=== PATIENT | female | born 1945 | race Caucasian/White ===

== ENCOUNTER 2017-02-12 11:27 | Inpatient (IN) | payer MEDICAID, MEDICARE ==
[2017-02-12] VITALS (7 sets, daily range): BP systolic 138–187; BP diastolic 72–87; PULSE 79–108; RESP 22–33; O2SAT 93–96
[~2017-02-12] VITALS: Ht 165.1 cm; Wt 57.1 kg
--- NOTE | 2017-02-12 12:33 | DRSVH ---
PROCEDURE: X-RAY CHEST ONE VIEW, PORTABLE ([id number]) INDICATIONS: Dyspnea TECHNIQUE: One view of the chest was acquired. COMPARISON: None. FINDINGS: Surgical changes and devices: None. Lungs and pleura: Moderate bibasilar consolidation is present that obscures the diaphragms. Intersti tial prominence within the perihilar regions is noted. Mediastinum: Mediastinal contours appear normal. Heart size is normal. There appears to be aortic atherosclerosis. Bones and chest wall: No suspicious bony lesions. Overlying soft tissues appear unremarkable. IMPRESSION: Bibasilar opacities obscure the diaphragms, most likely representing small to moderate si zed bilateral pleural effusions with associated atelectasis. However, superimposed pneumonia or pulm onary edema cannot be excluded. Dictated by: King Corey M.D. on 02/12/2017 at 11:28 Approved by: King Corey M.D. on 02/12/2017 at 11:31
[2017-02-12 12:37] LABS: BASOPHILS % (AUTO) 0.4 % (0-3); MONOCYTES % (AUTO) 7.7 % (4-12); Mean Corpuscular Hemoglobin 29.7 pg (27.0-35.0); Mean Corpuscular Volume 90.6 fL (81-100); NEUTROPHILS % (AUTO) 84.1 % (40-74); Platelet Count 298 bil/L (150-400)
--- NOTE | 2017-02-12 12:37 | ED.REPORT ---
HPI-General Illness Date of Service February 12, 2017 ED Provider: Manisha Martinez MD The patient is a 71 year old female w/ a hx of ME who presents to the ED due 3 weeks of worsening SOB. Associated symptoms include exertional dyspnea and weakness. Pt has to sit up in a chair in order to sleep. She is having trouble speaking due to SOB and can only manage 3-5 word sentences. She states that her symptoms are different from her normal, seasonal hay-fever. Pt is not on any medication. She denies chest pain, abdominal pain, and fever. The pt currently does not have any doctor and lives by herself. She has been doing quite well until the past couple days. Nursing Notes Stated Complaint: SHORTNESS OF BREATH Chief Complaint: Respiratory Distress Nursing Notes Reviewed: Yes Allergies: Coded Allergies: No Known Allergies (Unverified , 02/12/17) No Active Prescriptions or Reported Meds General Time Seen by MD: 11:46 Chief Complaint Other (shortness of breath) Hx Obtained From: Patient Arrived By: Walk-in Sudden in Onset?: Yes Onset Occurred: More than a week ago... (3 weeks) Symptom Duration: Since onset (3 weeks) Severity: Current: No pain currently Recent Healthcare: No recent doctor visit, No recent hospitalization Similar Sx Previous: No Past Medical History Past Medical History seasonal allergies Past Surgical History left shoulder dislocation Smoking History Unknown if Ever Smoker Social History Other Social History: Local resident Ambulatory Status Independent Review of Systems Full Review of Systems Constitutional: Denies: Fever Respiratory: Reports: Dyspnea on exertion, Shortness of breath Cardiovascular: Denies: Chest pain GI: Denies: Abdominal pain Neurologic: Reports: Weakness Complete sys rev & neg: except as marked. Physical Exam Vital Signs Vital Signs Date Time Temp Pulse Resp B/P Pulse Ox O2 Delivery O2 Flow Rate FiO2 02/12/17 13:20 92 28 176/72 95 Nasal Cannula 4 02/12/17 11:45 36.5 108 33 187/82 93 Nasal Cannula 4 Initial VS: Reviewed Head / Eyes: Atraumatic, Normocephalic, PERRL ENT: Mucous membranes moist Abdomen / GI: Soft, Non-tender, No guarding, No rebound, No distention Back: No CVA tenderness Skin: Warm, Dry Neurologic: Alert, Oriented Neck Vascular: Positive: JVD severe Rales / Rhonchi: Positive: Rales diffuse (to apices) tachypneic speaking in 3-5 word sentences Heart Rate / Rhythm: Positive: Irreg irregular rhythm Heart Sounds / Murmur: Positive: Systolic murmur present.. (III/) Lower Ext Edema: Positive: Bilateral 3+ (without chronic venous stasis, with bilateral erythema ) Upper Extremities Upper Extremity / MS: Full range of motion, No swelling fingertips are cool Interpretation & Diagnostics Lab Results Interpretation Result Diagram: 02/12/17 1225 02/12/17 1225 Test 02/12/17 12:25 White Blood Count 7.3th/mm3 (3.8-10.1) Red Blood Count 4.68mil/mm3 (3.90-5.20) Hemoglobin 13.9g/dL (12.0-15.6) Hematocrit 42.4% (35.0-46.0) Mean Corpuscular Volume 90.6fL (81-100) Mean Corpuscular Hemoglobin 29.7pg (27.0-35.0) Mean Corpuscular Hemoglobin Concent 32.8% (32.0-37.0) Red Cell Distribution Width 15.4% (12.3-15.4) Platelet Count 298bil/L (150-400) Neutrophils (%) (Auto) 84.1% (40-74) Lymphocytes (%) (Auto) 6.5% (14-46) Monocytes (%) (Auto) 7.7% (4-12) Eosinophils (%) (Auto) 1.0% (0-5) Basophils (%) (Auto) 0.4% (0-3) Sodium Level 141mEq/L (134-144) Potassium Level 4.2mEq/L (3.5-5.2) Chloride Level 103mEq/L (97-108) Carbon Dioxide Level 22mmol/L (18-29) Blood Urea Nitrogen 22mg/dL (8-27) Creatinine 0.92mg/dL (0.57-1.00) Estimat Glomerular Filtration Rate 86mL/min (>59) Glucose Level 115mg/dL (60-99) Calcium Level 8.8mg/dL (8.5-10.1) Magnesium Level 2.1mg/dL (1.6-2.6) Total Bilirubin 0.5mg/dL (0.0-1.2) Aspartate Amino Transf (AST/SGOT) 39U/L (0-50) Alanine Aminotransferase (ALT/SGPT) 37U/L (0-32) Alkaline Phosphatase 99U/L (25-165) Troponin T 0.051ug/L (0.0-0.011) Total Protein 5.4g/dL (6.4-8.4) Albumin 3.1g/dL (3.4-5.0) Hold Ferrell Top Tube Received (Received) ECG Interpretation ECG Interpretation: LVH Pt does not want intervention STEMI protocol not initiated Time: 12:12 Interpreted by: ED physician Rhythm / Conduction: Tachycardia (RATE 104) X-Ray Chest Interpretation Chest Xray Interpretation: IMPRESSION: Bibasilar opacities obscure the diaphragms, most likely representing small to moderate sized bilateral pleural effusions with associated atelectasis. However, superimposed pneumonia or pulmonary edema cannot be excluded. Dictated by: King Corey M.D. on 02/12/2017 at 11:28 Approved by: King Corey M.D. on 02/12/2017 at 11:31 View: Portable Interpretation / Wet Read by: Interpret - Radiologist Re-Eval/Medical Decision Med Decision/Clinical Course 71-year-old woman with no primary care physician no need to see a physician in no medical diagnoses and no medications presents with 3 weeks of exertional dyspnea and 3 days of getting significantly worse now with dyspnea at rest and having difficulty speaking in more than one to 2 word sentences. Initial workup reveals abnormal EKG with tachycardia frequent PVCs left ventricular hypertrophy and a question of ST elevation anteriorly versus repolarization abnormality. Labs reveal an elevated troponin. Chest x-ray reveals pulmonary edema and clinical exam is also suggestive that her failure with significant edema. Initial concern was for STEMI. Cardiology was called for recommendations and review. The patient is very clear she wants to be DO NOT RESUSCITATE and would not want any type of interventional procedures. Dr. Flores did come to the emergency department and did not feel that the EKG was intact a STEMI rather showed repolarization abnormalities. He personally did a bedside ultrasound suggesting an ejection fraction of 20% consistent with overwhelming heart failure and the severe respiratory distress she is currently exhibiting. She is feeling a bit better after IV nitroglycerin currently on heparin. Initially had started to do metoprolol 3 IV push is given her tachycardia and hypertension however once the bedside ultrasound suggested such a low ejection fraction held off on any additional metoprolol and added by mouth lisinopril. She will be admitted to the PCU hospitalist is involved stable at time of transfer to the floor Time of Eval: 12:22 Re-Evaluation/Progress Note: Pt rechecked. She is significantly tachypneic. Pt is definitely DNR and doesn't want any interventions. Discussed concerns that she was having a heart attack. Consultation #1: Referral / Consult Name: Todd Flores MD Consulted With: Cardiology Call Returned at: 13:27 Dog Races Manager: Will see patient Note: Case discussed with cardiology. Dr. Flores will come and see pt. Consultation #2: Referral / Consult Name: Todd Flores MD Consulted With: Cardiology Call Returned at: 13:41 Note: Dr. Flores visits pt in the ED and performs a bedside US. He believes it is hypertensive cardiomyopathy with a current ejection fracture at 20%. He recommends increasing nitro drip and ordered oral Lisiniprol. Will hold on IV metropolol and agrees with admission. Consultation #3: Referral / Consult Name: Momo Garcia DO Consulted With: Hospitalist Call Returned at: 15:17 Dog Races Manager: Agrees with eval, Agrees with plan Note: Case discussed. Counseled Regarding: Diagnosis, Lab results, Need for admission Discharge & Departure Primary Impression: Acute heart failure Heart failure type: unspecified heart failure type Qualified Code: I50.9 - Heart failure, unspecified Additional Impressions: Hypertensive cardiomyopathy Heart failure presence: with heart failure Qualified Code: I11.0 - Hypertensive heart disease with heart failure NSTEMI (non-ST elevated myocardial infarction) Disposition: ADMITTED TO HOSPITAL Discharge Condition All VS Reviewed: Yes Condition: Stable Referrals: NOPCP (PCP) Ad Loyola MD (Family) [facility] Scrjennifer Attestation Portion of this note were transcribed by Ivon Arthur. I, Dr. Manisha Martinez, personally performed the history, physical exam, and medical decision-making: I reviewed and confirmed the accuracy for the information in the transcribed note. Signed by: vinny Bailon, 02/12/17 1500 copies to: [facility] Manisha Martinez MD February 12, 2017 12:36 Ivon Arthur February 12, 2017 12:46
[2017-02-12] MEDS ORDERED: Heparin 25K Unit/500mL 0.45 NS 25,000 UNIT in IV Premix 1 EACH IV ONE (12:40)
[2017-02-12] MEDS ORDERED: Nitroglycerin 50 mg/250 mL D5W 50,000 MCG in IV Premix 1 EACH IV ONE (12:40)
[2017-02-12] MEDS ORDERED: Heparin 5,000 Unit/mL Inj IVPUSH ONE (12:40)
[2017-02-12 13:10] LABS: Magnesium 2.1 mg/dL (1.6-2.6)
[2017-02-12 13:13] LABS: TROPONIN T 0.051 ug/L (0.0-0.011)
[2017-02-12] MEDS: Heparin 25,000 UNIT in 0.9% Sodium Chloride 475 ML IV SCH (13:33)
--- NOTE | 2017-02-12 13:59 | PCM.CHPCAR ---
Consult Subjective Date of service February 12, 2017 Date of admit Provider Requesting Consult Requesting Provider: Manisha Martinez MD Primary Care Physician Primary Care Physician: Marysol Chief Complaint Progressive shortness of breath History of Present Illness This is a delightful 71-year-old female with history of shortness of breath over the past 2-3 weeks. She has noted progressive symptoms that are consistent with PND and/or orthopnea. She is up to the point where she has to sit in a chair throughout the night. She denies any real significant chest discomfort. She has complained of mild chest discomfort on and off over the past 2-3 weeks. She fell and presents to the ER with these complaints and an EKG was performed which was interpreted as an acute MN concerns for anterior ST elevation myocardial infarction. However based on my personal review it appears to be more secondary to LVH pattern. She has sinus tachycardia. Her chest x-ray shows possibly pulmonary edema with atelectasis. The patient currently is more comfortable after she was placed on Nitropaste. She has been started on intravenous heparin. Her troponins have come back positive. The rest of her blood work is essentially within normal limits. Review of Systems General: Reports: Change in exercise capacity Energy (decreased) Fatigue (decreased) Normal Appitite Ears, Nose, Mouth & Throat: Denies: Any hearing loss Epistaxis or hoarseness Respiratory: Reports: Orthopnea or PND Significant dyspnea Cardiovascular: Reports: Atypical chest discomfort Chest Discomfort Denies: Atrial Fibrillation Skipped beats Gastrointestinal: Denies: Ulcers or GI blood loss Genitourinary: Denies: Hematuria Urinary symptoms Musculoskeletal: Denies: Significant joint or back problems Significant myalgias Neurological: Reports: Any history of stroke/TIA symptoms Psychiatric: Denies: Anxiety Depression Endocrine: Denies: Intolerance to heat Integumentary: Denies: Any change in hair or nails Any rash or skin lesions Hematologic/Immunologic: Denies: Recent history of anemia Unusual bruising or bleeding PMH Past Medical History Seasonal allergies No Active Prescriptions or Reported Meds Current Inpatient Medications Current Medications Nitroglycerin 0.4 mg Q5MIN PRN SL Last administered on 02/12/17t 13:03; Admin Dose 0.4 MG; Start 02/12/17 at 12:40 Metoprolol Tartrate 5 mg Q5MIN PRN IVPUSH; Start 02/12/17 at 13:35 Allergies: Coded Allergies: No Known Allergies (Unverified , 02/12/17) Family History Family History Noncontributory Social History Hx Alcohol Use: Yes ("occasionally")Hx Substance Use: No Smoking Status: Unknown if Ever Smoker Exam Vital Signs Vital Sign - Last Date Time Temp Pulse Resp B/P Pulse Ox O2 Delivery O2 Flow Rate FiO2 02/12/17 13:20 92 28 176/72 95 Nasal Cannula 4 02/12/17 11:45 36.5 General: Pleasant Cooperative Skin: Warm & dry to touch Head: Normocephalic Eye: EOMS intact Neck: JVP elevated Ears, Nose & Throat: Ears no gross abnormalities Nose no gross abnormalities Chest: Crackles Cardiac: Normal non-displaced apical impulse Regular rhythm Pulses: Pulses full/equal all extremities Abdomen: Soft, non-distended, non-tender Without masses or organomegally Extremities: Warm w/o deformities,erythema noted Neurological: Alert & oriented No gross motor or sensory deficits Psychological: Affect & interaction appropriate Lab and Diagnostics Labs CBC Test 02/12/17 12:25 White Blood Count 7.3th/mm3 (3.8-10.1) Red Blood Count 4.68mil/mm3 (3.90-5.20) Hemoglobin 13.9g/dL (12.0-15.6) Hematocrit 42.4% (35.0-46.0) Mean Corpuscular Volume 90.6fL (81-100) Mean Corpuscular Hemoglobin 29.7pg (27.0-35.0) Mean Corpuscular Hemoglobin Concent 32.8% (32.0-37.0) Red Cell Distribution Width 15.4% (12.3-15.4) Platelet Count 298bil/L (150-400) Neutrophils (%) (Auto) 84.1% (40-74) Lymphocytes (%) (Auto) 6.5% (14-46) Monocytes (%) (Auto) 7.7% (4-12) Eosinophils (%) (Auto) 1.0% (0-5) Basophils (%) (Auto) 0.4% (0-3) CMP Test 02/12/17 12:25 Sodium Level 141mEq/L Potassium Level 4.2mEq/L Chloride Level 103mEq/L Carbon Dioxide Level 22mmol/L Blood Urea Nitrogen 22mg/dL Creatinine 0.92mg/dL Estimat Glomerular Filtration Rate 86mL/min Glucose Level 115mg/dL Calcium Level 8.8mg/dL Magnesium Level 2.1mg/dL Total Bilirubin 0.5mg/dL Aspartate Amino Transf (AST/SGOT) 39U/L Alanine Aminotransferase (ALT/SGPT) 37U/L Alkaline Phosphatase 99U/L Troponin T 0.051ug/L Total Protein 5.4g/dL Albumin 3.1g/dL Hold Ferrell Top Tube Received Result Diagram: 02/12/17 1225 02/12/17 1225 X-Rays, CTs and MRIs Date of Service: 02/12/17 1151 PROCEDURE: X-RAY CHEST ONE VIEW, PORTABLE ([id number]) INDICATIONS: Dyspnea TECHNIQUE: One view of the chest was acquired. COMPARISON: None. FINDINGS: Surgical changes and devices: None. Lungs and pleura: Moderate bibasilar consolidation is present that obscures the diaphragms. Interstitial prominence within the perihilar regions is noted. Mediastinum: Mediastinal contours appear normal. Heart size is normal. There appears to be aortic atherosclerosis. Bones and chest wall: No suspicious bony lesions. Overlying soft tissues appear unremarkable. IMPRESSION: Bibasilar opacities obscure the diaphragms, most likely representing small to moderate sized bilateral pleural effusions with associated atelectasis. However, superimposed pneumonia or pulmonary edema cannot be excluded. Dictated by: King Corey M.D. on 02/12/2017 at 11:28 Approved by: King Corey M.D. on 02/12/2017 at 11:31 Assessment & Plan Problems: (1) Acute systolic heart failure Plan: Her symptoms are consistent with acute onset of systolic heart failure with congestion. The patient appears to be experiencing a non-ST elevation myocardial infarction. Her EKG is not impressive for anterior STEMI. She has more upsloping ST segments in the setting of LVH which is consistent with LVH pattern. She has no reciprocal changes either. She denies any real significant chest pain at this moment. We will proceed with a stat echocardiogram to assess her LV ejection fraction and LV wall motion and for any other structural heart disease. The patient will be started on intravenous heparin, Nitropaste, aspirin, statins. Beta blockers will be decided after her echocardiogram has been completed. I would also like to start on QUINN inhibitor since her blood pressure is quite elevated at this moment. We discussed about a heart catheterization in detail. Initially she told the ER physician that she did not want to proceed with any invasive therapy. However after further discussion she has agreed that she would like to have done if her symptoms will improve. Status: Acute ICD Code: I50.21 (2) Non-ST elevation myocardial infarction (NSTEMI) Plan: Patient will be started on intravenous heparin, aspirin, statins, and Quinn inhibitors given the setting of acute hypertension. We will hold off beta blockers for now because she might have acute CHF which is a relative contraindication for beta skyler therapy. She is also Nitropaste which is helping with her breathing as well which is most likely a result of her decreased preload. Status: Acute ICD Code: I21.4 Resuscitation Status: CPR: Attempt Resuscitation Time spent 60 minutes of critical care Todd Flores MD February 12, 2017 13:59
[2017-02-12] MEDS: MeTOProlol 1 mg/mL 5 mL Inj IVPUSH PRN (14:16)
[2017-02-12] MEDS ORDERED: Alum-Mag Hydrox-Simeth 30 mL Suspension PO PRN (15:20)
[2017-02-12] MEDS ORDERED: Senna-Docusate 8.6-50 mg Tablet PO PRN (15:20)
[2017-02-12] MEDS ORDERED: Ondansetron 2 mg/mL 2 mL Inj IVPUSH PRN (15:20)
[2017-02-12] MEDS ORDERED: Polyethylene Glycol (PEG) 17 Gm Powder PO PRN (15:20)
--- NOTE | 2017-02-12 15:23 | DRSVH ---
[facility] [address] [place] [address] Echocardiogram Report Name: NITHYA OTOOLE Study Date: 02/12/2017 Height: 65 in Hospital Exam Location: [facility] Weight: 130 lb Gender: Female BSA: 1.6 m2 : 1945 Age: 71 yrs BP: 189/105 mmHg Reason For Study: ACUTE WI / CHF Ordering Physician: Performed By: Kory Figueroa Interpretation Summary The left ventricle is moderate-severely dilated. There is moderate concentric left ventricular hypertrophy. Left ventricular systolic function is moderate to severely reduced. The ejection fraction is estimated to be 30-35%. There is moderate to severe global hypokinesis of the left ventricle. The right ventricle is normal in size and function. The right ventricular systolic pressure is estimated at 63 mmHg assuming a right atrial pressure of 15 mm Hg. The left atrium is severely dilated. The right atrium is mild to moderately dilated. There is moderate mitral regurgitation. There is mild aortic valve sclerosis. There is moderate aortic regurgitation. There is mild to moderate tricuspid regurgitation. The aortic Sinus(es) of Valsalva are moderately dilated. The ascending aorta is moderately enlarged. There is a small pericardial effusion noted. There are no echocardiographic or Doppler indications for cardiac tamponade. There are moderately large-sized bilateral pleural effusions noted. Procedure: A two-dimensional transthoracic echocardiogram with color flow and Doppler was performed. The study quality was technically good. The heart rate ranged between 77-125 bpm during the study. Left Ventricle: The left ventricle is moderate-severely dilated. There is moderate concentric left ventricular hypertrophy. Left ventricular systolic function is moderate to severely reduced. The ejection fraction is estimated to be 30-35%. There is moderate to severe global hypokinesis of the left ventricle. Right Ventricle: The right ventricle is normal in size and function. Atria: The left atrium is severely dilated. The right atrium is mild to moderately dilated. The interatrial septum is intact with no evidence for an atrial septal defect. Mitral Valve: The mitral valve leaflets appear borderline thickened, but open well. There is moderate mitral annular calcification. There is moderate mitral regurgitation. Aortic Valve: The aortic valve is trileaflet. The aortic valve opens well. There is mild aortic valve sclerosis. There is moderate aortic regurgitation. There is mild holodiastolic flow reversal in the descending thoracic aorta. Tricuspid Valve: There is mild to moderate tricuspid regurgitation. The right ventricular systolic pressure is estimated at 63 mmHg assuming a right atrial pressure of 15 mm Hg. Pulmonic Valve: The pulmonic valve is not well seen, but is grossly normal. There is trace pulmonic regurgitation. Great Vessels: The aortic Sinus(es) of Valsalva are moderately dilated. The ascending aorta is moderately enlarged. The pulmonary artery is normal size. The IVC is dilated (diameter is greater than 2.1 cm) and it collapses less than 50% with a sniff. This suggests a high right atrial pressure of 15 mm Hg. Pericardium/ Pleura There is a small pericardial effusion noted. There are no echocardiographic or Doppler indications for cardiac tamponade. There are moderately large-sized bilateral pleural effusions noted. MMode/2D Measurements & Calculations LVIDd: 6.2 cm RA long axis LVOT diam LVIDs: 5.6 cm LA A2 area: 30.7 cm FS: 9.9 % LA A4 area: 30.0 cm RA area AoV Opening EPSS: 1.9 cm LA length (vol): 5.9 cm IVSd: 1.0 cm LA vol: 133.6 ml : 21.0 cm Ao root diam LVPWd: 1.6 cm LA vol index RA vol : 65.5 ml asc Aorta RA Diam: 4.4 cm IVC diam: 2.3 cm : 39.7 mm2 LV balderas. diameter/BSA LV sys. diameter/BSA (cm/m^2): 3.8 (cm/m^2): 3.4 Doppler Measurements & Calculations Ao V2 max: 245.7 cm/sec MV E max albert MV E/A: 1.2 TR max albert Ao max P.1 mmHg : 97.3 cm/sec : 345.8 cm/sec Ao mean P.9 mmHg MV A max albert TR max PG LVOT Max Albert : 83.3 cm/sec : 47.8 mmHg : 149.7 cm/sec PA V2 max NIKOLAY(I,D): 2.2 cm : 71.1 cm/sec sev ratio: 0.62 PA mean PG AI P1/2t: 310.5 msec : 1.1 mmHg AI dec slope : 475.3 cm/s2c MV dec time: 0.11 sec Ao V2 mean LV V1 max PG PA V2 mean : 170.4 cm/sec : 50.2 cm/sec Ao V2 VTI: 43.8 cm LV V1 VTI PA pr(Accel) NIKOLAY(V,D): 2.1 cm2 : 27.3 cm : 29.2 mmHg NIKOLAY indexed to BSA (cm^2/m^2): 1.3 Reading Physician:VITOR
[2017-02-12] MEDS: Furosemide 10 mg/mL 4 mL Inj IVPUSH SCH (16:51)
--- NOTE | 2017-02-12 17:46 | PCM.HPMED ---
Subjective Date of Service February 12, 2017 Primary Provider: Admitting Physician: Momo Garcia DO Primary Care Physician: Marysol Attending Physician: Momo Garcia DO Chief Complaint: Progressive shortness of breath History of Present Illness: Zenobia Marcos is a 71 year old woman who has a history of avoiding health care who presented to the [facility] ED with a complaint of shortness of breath for the last 2-3 weeks. The patient noted paroxysmal nocturnal dyspnea, orthopnea, significant lower extremity edema, bilateral lower extremity erythema, as well as increasing fatigue. The patient has not seen a physician or sought any medical care for the last 7 years. She states she is otherwise healthy. The patient states that she did not want to come to the hospital however her landlord made her. She has had intermittent chest tightness like a band around her chest going to her back for the last several months and noted it this morning. Patient presented to the ED EKG was performed which was interpreted as an acute anterior WA. Dr. Flores contacted by the ED who evaluated the patient and performed a bedside echo. He did not feel that the patient's EKG was reflective of a STEMI. The patient was given Nitropaste and appeared more comfortable after. Per Dr. Flores the patient was started on IV heparin. Currently the patient states that she feels quite a bit better and her shortness of breath has improved. Review of Systems: A comprehensive review of systems was conducted with the patient and found to be negative except as above in the History of Present Illness. Allergies Coded Allergies: No Known Allergies (Unverified , 02/12/17) Home Medications None. PMH Seasonal allergies Surgical History Left shoulder dislocation Family History Patient states that members of her family ended up with hypertension and heart disease but much later in their lives. Social History Hx Alcohol Use: Yes ("occasionally") Hx Substance Use: No Hx Tobacco Use: No Smoking Status: Never Smoker Exam Vital Signs Vital Sign - Last Date Time Temp Pulse Resp B/P Pulse Ox O2 Delivery O2 Flow Rate FiO2 02/12/17 15:25 79 30 159/87 96 Nasal Cannula 4 02/12/17 11:45 36.5 Exam General: No acute distress, thin, frail elderly woman in a hospital bed. HEENT: Normocephalic, atraumatic. External ears without defect. Right cataract present, left pupil reactive to light. Anicteric sclerae, moist conjunctivae, and no lid lag. Oropharynx free of erythema and cobble stoning with moist mucosa. Neck: Supple with full range of motion. No jugular venous distension. No lymphadenopathy or thyromegaly. Cardiovascular: Irregular rhythm, normal rate with grade 2 out of 5 systolic murmur. Pulmonary: Crackles appreciated bilaterally at the bases. Normal respiratory effort with no use of accessory muscles. Abdomen: Bowel tones present. Soft, nontender, mildly distended. No hepatosplenomegaly or masses appreciated. Extremities: Pitting edema up to the thigh bilaterally. No clubbing. Skin: Normal temperature. Bilateral lower extremities with blanching erythema when elevated. Neurological: Cranial nerves grossly intact. Normal muscle strength, tone, and bulk. Reflexes, coordination, and sensory function within normal limits. No known gait impairment. Psychiatric: Normal mood and affect. Alert and oriented to person, place, and time. Lab and Diagnostics Result Diagram: 02/12/17 1225 02/12/17 1225 X-Rays, CTs and MRIs X-RAY CHEST ONE VIEW, PORTABLE IMPRESSION: Bibasilar opacities obscure the diaphragms, most likely representing small to moderate sized bilateral pleural effusions with associated atelectasis. However, superimposed pneumonia or pulmonary edema cannot be excluded. Dictated by: King Corey M.D. on 02/12/2017 at 11:28 Cardiac Echo Impressions Interpretation Summary The left ventricle is moderate-severely dilated. There is moderate concentric left ventricular hypertrophy. Left ventricular systolic function is moderate to severely reduced. The ejection fraction is estimated to be 30-35%. There is moderate to severe global hypokinesis of the left ventricle. The right ventricle is normal in size and function. The right ventricular systolic pressure is estimated at 63 mmHg assuming a right atrial pressure of 15 mm Hg. The left atrium is severely dilated. The right atrium is mild to moderately dilated. There is moderate mitral regurgitation. There is mild aortic valve sclerosis. There is moderate aortic regurgitation. There is mild to moderate tricuspid regurgitation. The aortic Sinus(es) of Valsalva are moderately dilated. The ascending aorta is moderately enlarged. There is a small pericardial effusion noted. There are no echocardiographic or Doppler indications for cardiac tamponade. There are moderately large-sized bilateral pleural effusions noted. Assessment & Plan Zenobia Marcos is a 71 year old woman who has a history of avoiding health care who presented to the [facility] ED with a complaint of shortness of breath for the last 2-3 weeks. Acute heart failure with reduced EF, present on admission, active -ECHO reveals an EF of 30% -Cardiology consulted, will follow recommendations -IV heparin, Nitroglycerin drip, ASA, statin, ACEi, Lasix per cardiology -Hold off beta-skyler at this time -Questionable if the patient would like to proceed with cardiac cath -Lipid panel in AM -1.5 L fluid restriction, low sodium diet, CHF education NSTEMI, present on admission, active -As above Hyperglycemia -A1C ordered Hypertension -As above, avoid beta skyler in CHF CODE STATUS: DO NOT RESUSCITATE/DO NOT INTUBATE Patient is admitted under inpatient status with expected length of stay greater than 2 midnights due to severity of presenting symptoms, risk of adverse event, and complexity of treatment plan. Pain Evaluation: Adequate Pain Control VTE Prophylaxis: Other (heparin drip) Resuscitation Status: DNR/DNI:Do Not Resuscitate/Intubate Time spent 55 ,minutes Attending Statement I have seen and evaluated patient at bedside with resident physician. I agree with above documentation. Tamanna Mai DO February 12, 2017 15:46 Momo Garcia DO February 13, 2017 08:25
--- NOTE | 2017-02-12 18:48 | NUR ---
Admit/ activity/HR Pt arrived on floor at 1635 on nitro gtt and heparin gtt. Pt A&O x3, transferred from stretcher to bed on slider board due to extreme SOB with exertion. BP hypertensive, HR SR/ST in the 90s-100s. Lasix given, pt able to pivot to [facility] [place] assist. Pt had one run of 6 beats of V-tach, asymptomatic at this time.
[2017-02-13] VITALS (9 sets, daily range): BP systolic 129–159; BP diastolic 66–90; PULSE 83–132; RESP 19–32; O2SAT 93–95
[2017-02-13] MEDS: Heparin Protocol Boluses IVPUSH PRN ×2 (02:08→16:09)
[2017-02-13 03:16] LABS: BASOPHILS % (AUTO) 0.6 % (0-3); EOSINOPHILS % (AUTO) 2.9 % (0-5); MONOCYTES % (AUTO) 10.2 % (4-12); Mean Corpuscular Hemoglobin 29.4 pg (27.0-35.0); Mean Corpuscular Volume 91.4 fL (81-100); NEUTROPHILS % (AUTO) 72.1 % (40-74); Platelet Count 301 bil/L (150-400)
--- NOTE | 2017-02-13 04:06 | NUR ---
CHAVEZ Pt receiving IV lasix. Pt initially refused chavez catheter, but c/o of increased leg pain with all the activity getting in and out of bed to the [facility]. Chavez catheter placed @ 0350 on 02/13/17. VSS, pain 4/10 due to edema to the LE, no pain medication needed.
[2017-02-13] MEDS: Furosemide 10 mg/mL 4 mL Inj IVPUSH SCH ×2 (05:23→18:06)
--- NOTE | 2017-02-13 06:39 | NUR ---
I&O's Pt received IV lasix, on fluid restriction 1500ml per 24 hours. Pt had 298ml in and 1400ml out on evening or night nurse supervisor.
[2017-02-13] MEDS ORDERED: oxyCODONE-Acetamin 5-325 mg Tablet PO PRN (08:40)
--- NOTE | 2017-02-13 11:34 | NUR ---
Social Work: Initial Assessment D: Per EMR review, pt is a 71 year old female admitted for CHF, ASF. Pt is Medicare with no supplement, LTC insurance or VA benefits. Pt has not seen an MD in 7 years and has no PCP. Pt states she has no NOK or identified support persons. Advanced directives information provided to patient- MANAGER ARCHITECTURE stressed importance as pt has no identified family. Readmit score is low, 2/8. MANAGER ARCHITECTURE met with pt at bedside. Sw role explained and contact info provided. See initial assessment. Pt lives at the [facility] where she has been a resident for many years. Pt states she uses no DME, has never had HH or Skilled Rehab. Pt received Meals on Wheels delivery. Pt does not drive but uses public transportation. Per MD at am rounds, pt has excess fluid on LE which makes ambulation difficult. Pt is being diuresed at this time. MANAGER ARCHITECTURE discussed pt's PCP status. Pt is interested in a Residency Clinic Appointment for primary care. Pt is anticipated to be here through the weekend. MANAGER ARCHITECTURE will request [facility] [employer]SEM[employer] make referral on Wednesday as [facility] is closed at this time. A: Pt who is I at baseline. P: Evolving; MANAGER ARCHITECTURE to continue to follow closely with pt's medical care and assist with discharge planning. YASSINE David Addendum: 02/13/17 at 1141 by MANNY VERMA SS Amended: Links added.
--- NOTE | 2017-02-13 12:28 | PCM.PNMED ---
Subjective Date of Service February 13, 2017 Subjective Patient notes overall feeling improved but still having some labored breathing. Her main complaint today is pain of her right leg worse with movement. She has also been urinating very frequently since yesterday with addition of Lasix. Denies any acute chest pains or palpitations, denied any fever or chills. No other pain aside from that of right leg. Exam Vital Signs Vital Sign - Last Date Time Temp Pulse Resp B/P Pulse Ox O2 Delivery O2 Flow Rate FiO2 02/13/17 08:30 Supplement Oxygen 02/13/17 07:51 36.7 95 22 153/78 93 4.00 Intake and Output 02/12/17 02/12/17 02/13/17 Cumulative From/Thru 15:00 23:00 07:00 02/12/17 11:45 - 02/13/17 06:31 Intake Total 469 ml 488 ml 957 ml Output Total 900 ml 2850 ml 3750 ml Balance -431 ml -2362 ml -2793 ml Intake Oral 400 ml 298 ml 698 ml IV Total 69 ml 190 ml 259 ml Output Urine Total 900 ml 2850 ml 3750 ml # Bowel Movements 0 0 General: Alert, Oriented X3, Cooperative, Mild Distress Mouth: Mucous Membr Moist/[place] Chest & Lungs: Coarse breath sounds, Other (persisting crackles noted in bilateral lung bases) Cardiovascular: Other (regular rhythm with a borderline greater on the 100 bpm) Abdomen: Non-tender, Distended, No hepatosplenomegaly Extremities: Other (severe bilateral lower extremity edema, with erythematous changes extending midway up both calfs demarcated line apparently secondary to venous stasis. Right leg is acutely tender but not worsened by palpation no ropiness or masses noted on palpation of calf. Dorsal pedis pulses are intact bilaterally) Neurological: Grossly Neurologically Intact IVs and Medications Medications Reviewed: Medications were reviewed in detail Lab and Diagnostics Result Diagram: 02/13/1724302/13/17 024 X-Rays, CTs and MRIs X-RAY CHEST ONE VIEW, PORTABLE IMPRESSION: Bibasilar opacities obscure the diaphragms, most likely representing small to moderate sized bilateral pleural effusions with associated atelectasis. However, superimposed pneumonia or pulmonary edema cannot be excluded. Dictated by: King Corey M.D. on 02/12/2017 at 11:28 Cardiac Echo Impressions Interpretation Summary The left ventricle is moderate-severely dilated. There is moderate concentric left ventricular hypertrophy. Left ventricular systolic function is moderate to severely reduced. The ejection fraction is estimated to be 30-35%. There is moderate to severe global hypokinesis of the left ventricle. The right ventricle is normal in size and function. The right ventricular systolic pressure is estimated at 63 mmHg assuming a right atrial pressure of 15 mm Hg. The left atrium is severely dilated. The right atrium is mild to moderately dilated. There is moderate mitral regurgitation. There is mild aortic valve sclerosis. There is moderate aortic regurgitation. There is mild to moderate tricuspid regurgitation. The aortic Sinus(es) of Valsalva are moderately dilated. The ascending aorta is moderately enlarged. There is a small pericardial effusion noted. There are no echocardiographic or Doppler indications for cardiac tamponade. There are moderately large-sized bilateral pleural effusions noted. Assessment & Plan Zenobia Marcos is a 71 year old woman who has a history of avoiding health care who presented to the [facility] ED with a complaint of shortness of breath for the last 2-3 weeks. Acute heart failure with reduced EF, present on admission, active -ECHO reveals an EF of 30% -Cardiology consulted, will follow recommendations -IV heparin and Nitroglycerin drip continued, ASA, statin, ACEi, Lasix per cardiology -Considering initiation of beta-skyler prior to discharge - Given stable chest pain nitroglycerin has been made and I would anticipate discontinuation today with agreement of cardiology -1.5 L fluid restriction, low sodium diet, CHF education NSTEMI, present on admission, active -As above, though elevation in troponins may be related to cardiac strain setting of severe CHF exacerbation rather than true acute coronary syndrome - Regardless , pt declines invasive treatment options, requesting medical MGMT only. Right lower leg pain - Given prolonged immobility prior to presentation patient is at high risk of DVT - Right lower extremity Doppler ordered and pending to evaluate further - Pain management currently achieved with when necessary Percocet Hyperlipidemia: - Statin therapy as noted above Hyperglycemia -A1C ordered Hypertension -As above - Improved since admission but not currently on optimal control CODE STATUS: DO NOT RESUSCITATE/DO NOT INTUBATE Patient is admitted under inpatient status with expected length of stay greater than 2 midnights due to severity of presenting symptoms, risk of adverse event, and complexity of treatment plan. Pain Evaluation: Adequate Pain Control GI Prophylaxis: Not indicated VTE Prophylaxis: Sub-Q Heparin (Unfractionated), Other (heparin drip) Resuscitation Status: DNR/DNI:Do Not Resuscitate/Intubate Time spent 30 minutes Momo Garcia DO February 13, 2017 12:28
[2017-02-13] MEDS: oxyCODONE-Acetamin 5-325 mg Tablet PO PRN ×3 (13:18→19:30)
[2017-02-13] MEDS: Heparin 25,000 UNIT in 0.9% Sodium Chloride 475 ML IV SCH (16:19)
--- NOTE | 2017-02-13 16:32 | NUR ---
UOP/Cardiac 850cc pale yellow UOP via Garsia as of 1630. to order additional Lasix dose. Continues on heparin gtt, subtherapeutic this shift, titrating per Cardiac Heparin Gtt protocol. Pt denies CP. Nitro gtt titrated off early this afternoon. Significant pain to RLE, doppler ordered, pt did not tolerate compressing vessel at all from US tech. Percocet 1-2 tabs PO prn, effective relief per pt.
--- NOTE | 2017-02-13 16:48 | DRSVH ---
PROCEDURE: US VEINOUS LEG DUPLEX UNILATERAL, RIGHT INDICATIONS: concern for dvt/severe Rt leg pain TECHNIQUE: Real-time imaging, as well as color and pulse Doppler interrogation, were performed of the lower extr emity deep veins from the inguinal ligament to the popliteal fossa. COMPARISON: None. FINDINGS: The deep veins are normally compressible, and free of intraluminal thrombus. Color and pu lse Doppler demonstrate normal phasic intraluminal flow. There is normal augmentation response to di stal compression maneuver. IMPRESSION: No gross evidence of deep venous thrombosis. However, exam is considered suboptimal as porfirio devi could not tolerate compression. Dictated by: Karie Wiley M.D. on 02/13/2017 at 16:46 Approved by: Karie Wiley M.D. on 02/13/2017 at 16:46
--- NOTE | 2017-02-13 21:40 | NUR ---
PAIN Pt c/o severe leg and heel pain, received 2 tabs po Percocet 5/325mg with good results. Pt is still severely edematous in the LE. Addendum: 02/14/17 at 0626 by FELIX CHAMBERS RN Pt c/o severe leg pain 8/10 2 more Percocets given
[2017-02-14] VITALS (9 sets, daily range): BP systolic 114–154; BP diastolic 55–84; PULSE 87–105; RESP 17–24; O2SAT 93–98
[2017-02-14] MEDS: oxyCODONE-Acetamin 5-325 mg Tablet PO PRN ×4 (04:03→18:22)
[2017-02-14] MEDS: Furosemide 10 mg/mL 4 mL Inj IVPUSH SCH ×2 (05:45→17:31)
[2017-02-14] MEDS: MeTOProlol 1 mg/mL 5 mL Inj IVPUSH PRN (06:10)
[2017-02-14] MEDS: Heparin Protocol Boluses IVPUSH PRN (06:10)
--- NOTE | 2017-02-14 06:26 | NUR ---
I&O'S Pt had 830cc in and 2240cc out on central office technician. Pt on 1500cc fluid restriction. Pt very worried that she will not 'survive' this fluid restriction. scalloper light all night for more juice or water, pt educated about fluid restriction and lasix.
--- NOTE | 2017-02-14 10:00 | NUR ---
[facility] Signed
--- NOTE | 2017-02-14 10:44 | PCM.PNMED ---
Subjective Date of Service February 14, 2017 Subjective Zenobia Marcos is a 71 year old woman who has a history of avoiding health care who presented to the [facility] ED with a complaint of shortness of breath for the last 2-3 weeks. Now under treatment for acute heart failure with reduced EF. Hospital day #3. Overnight: No acute events. Today: The patient states she is feeling better and her breathing is improved however she complains worsening right knee pain. She states that she has had frequent falls and injured the right knee. The patient denies any cough, chills , fevers or abdominal pain. She does think her fluid restriction is too severe and she would like it increased. The remainder of ROS is negative except as noted above. Exam Vital Signs Vital Sign - Last Date Time Temp Pulse Resp B/P Pulse Ox O2 Delivery O2 Flow Rate FiO2 02/14/17 08:06 90 02/14/17 07:28 Supplement Oxygen 02/14/17 07:28 36.4 24 153/84 98 3.00 Intake and Output 02/13/17 02/13/17 02/14/17 Cumulative From/Thru 15:00 23:00 07:00 02/12/17 11:45 - 02/14/17 06:48 Intake Total 757 ml 1068 ml 2782 ml Output Total 850 ml 2240 ml 6840 ml Balance -93 ml -1172 ml -4058 ml Intake Oral 330 ml 830 ml 1858 ml IV Total 427 ml 238 ml 924 ml Output Urine Total 850 ml 2240 ml 6840 ml # Bowel Movements 0 Exam General: No acute distress, thin, frail elderly woman in a hospital bed. HEENT: Normocephalic, atraumatic. External ears without defect. Right cataract present, left pupil reactive to light. Anicteric sclerae, moist conjunctivae, and no lid lag. Oropharynx free of erythema and cobble stoning with moist mucosa. Neck: Supple with full range of motion. No jugular venous distension. No lymphadenopathy or thyromegaly. Cardiovascular: Irregular rhythm, normal rate with grade 2 out of 5 systolic murmur. Pulmonary: Crackles appreciated bilaterally at the bases. Normal respiratory effort with no use of accessory muscles. Abdomen: Bowel tones present. Soft, nontender, mildly distended. No hepatosplenomegaly or masses appreciated. Extremities: Pitting edema up to the thigh bilaterally. No clubbing. Upper extremity edema reduced. Skin: Normal temperature. Bilateral lower extremities with blanching erythema when elevated. Neurological: Cranial nerves grossly intact. Normal muscle strength, tone, and bulk. Reflexes, coordination, and sensory function within normal limits. Psychiatric: Normal mood and affect. Alert and oriented to person, place, and time. IVs and Medications Medications Reviewed: Medications were reviewed in detail Lab and Diagnostics Result Diagram: 02/13/17 0244 02/14/17 0405 X-Rays, CTs and MRIs X-RAY CHEST ONE VIEW, PORTABLE IMPRESSION: Bibasilar opacities obscure the diaphragms, most likely representing small to moderate sized bilateral pleural effusions with associated atelectasis. However, superimposed pneumonia or pulmonary edema cannot be excluded. Dictated by: King Corey M.D. on 02/12/2017 at 11:28 VEINOUS LEG DUPLEX UNILATERAL, RIGHT IMPRESSION: No gross evidence of deep venous thrombosis. However, exam is considered suboptimal as patient could not tolerate compression. Dictated by: Karie Wiley M.D. on 02/13/2017 at 16:46 Cardiac Echo Impressions Interpretation Summary The left ventricle is moderate-severely dilated. There is moderate concentric left ventricular hypertrophy. Left ventricular systolic function is moderate to severely reduced. The ejection fraction is estimated to be 30-35%. There is moderate to severe global hypokinesis of the left ventricle. The right ventricle is normal in size and function. The right ventricular systolic pressure is estimated at 63 mmHg assuming a right atrial pressure of 15 mm Hg. The left atrium is severely dilated. The right atrium is mild to moderately dilated. There is moderate mitral regurgitation. There is mild aortic valve sclerosis. There is moderate aortic regurgitation. There is mild to moderate tricuspid regurgitation. The aortic Sinus(es) of Valsalva are moderately dilated. The ascending aorta is moderately enlarged. There is a small pericardial effusion noted. There are no echocardiographic or Doppler indications for cardiac tamponade. There are moderately large-sized bilateral pleural effusions noted. Assessment & Plan Zenobia Marcos is a 71 year old woman who has a history of avoiding health care who presented to the [facility] ED with a complaint of shortness of breath for the last 2-3 weeks. Now under treatment for acute heart failure with reduced EF. Hospital day #3. Acute heart failure with reduced EF, present on admission, active -ECHO reveals an EF of 30% -Cardiology consulted, will follow recommendations -IV heparin and Nitroglycerin drip stopped. -ASA, statin, ACEi, Lasix per cardiology -Considering initiation of beta-skyler prior to discharge -2 L fluid restriction, low sodium diet, CHF education NSTEMI, present on admission, active -As above, though elevation in troponin may be related to cardiac strain setting of severe CHF exacerbation rather than true acute coronary syndrome -Regardless, patient declines invasive treatment options, requesting medical management only. Right lower leg pain, not present on admission, ongoing. - Patient notes multiple falls - U/S ruled out PE. - Arterial Doppler, right knee Xray, uric acid level ordered. - Pain management currently achieved with when necessary Percocet Hyperlipidemia: - Statin therapy as noted above Hyperglycemia -A1C normal Hypertension -As above -Improved since admission but not currently on optimal control CODE STATUS: DO NOT RESUSCITATE/DO NOT INTUBATE Disposition: Anticipate patient will be in the hospital for 2-3 more days as she is evaluated and treated for the above conditions. GI Prophylaxis: Not indicated VTE Prophylaxis: Sub-Q Heparin (Unfractionated) Resuscitation Status: DNR/DNI:Do Not Resuscitate/Intubate Time spent 25 minutes Attending Statement I have seen and evaluated patient at bedside in addition to directly supervising care provided by resident physician. I agree with above documentation Tamanna Mai DO February 14, 2017 10:32 Momo Garcia DO February 14, 2017 14:51
--- NOTE | 2017-02-14 11:24 | DRSVH ---
PROCEDURE: X-RAY RIGHT KNEE, ONE OR TWO VIEWS ([id number]) INDICATIONS: falls, pain. TECHNIQUE: 2 views of the knee were acquired. COMPARISON: None. FINDINGS: Bones: Depressed fracture of the posterior margin of the lateral tibial plateau noted. Soft tissues: No joint effusion. No suspicious soft tissue calcifications. IMPRESSION: Depressed lateral tibial plateau fracture. Dictated by: Chnate Pagan MD, PhD on 02/14/2017 at 11:21 Approved by: Chante Pagan MD, PhD on 02/14/2017 at 11:22
[2017-02-14] MEDS ORDERED: MILRINONE IVPUSH ONE (13:10)
--- NOTE | 2017-02-14 13:25 | PCM.PNCARD ---
Subjective Date of service February 14, 2017 Chief Complaint Progressive shortness of breath History of Present Illness Patient has improved but still has significant amount of edema and has orthopnea and intermittent episodes of difficulty breathing. She is sitting upright in her bed. Denies any chest pain. Constitutional: Reports: Weakness, Denies: Fever, Sweats ENT: Reports: Dental Problems, Dysphagia, Throat Pain Eyes: Denies: Blurred Vision, Eyelid Inflammation Cardiovascular: Reports: Edema, SOB on Exertion, SOB while laying flat, Denies: Chest Pain Respiratory: Reports: Cough, SOB with Exertion, Shortness of Breath, Wake up Gasping for Breath, Wake up SOB Gastrointestinal: Denies: Abdominal Pain, Black tarry stools, Diarrhea, Vomiting Genitourinary: Reports: Change in Frequency, Denies: Hematuria, Hemodialysis Musculoskeletal: Reports: Ankle Pain, Redness, Swelling, Weakness Skin: Reports: Dry or Flakiness, Redness Neurological: Reports: Difficulty Walking, Denies: Confusion, Drooping Mouth, Localized Weakness, Tremors Endocrine: Reports: Blood Glucose Review, Excessive Thirst, Weight Gain Exam Vital Signs Vital Sign - Last Date Time Temp Pulse Resp B/P Pulse Ox O2 Delivery O2 Flow Rate FiO2 02/14/17 12:38 36.7 93 20 151/76 96 Nasal Cannula 3.00 Intake and Output 02/13/17 02/13/17 02/14/17 Cumulative From/Thru 15:00 23:00 07:00 02/12/17 11:45 - 02/14/17 06:48 Intake Total 757 ml 1068 ml 2782 ml Output Total 850 ml 2240 ml 6840 ml Balance -93 ml -1172 ml -4058 ml Intake Oral 330 ml 830 ml 1858 ml IV Total 427 ml 238 ml 924 ml Output Urine Total 850 ml 2240 ml 6840 ml # Bowel Movements 0 General: Pleasant Cooperative Skin: Warm & dry to touch Head: Normocephalic Neck: JVP normal Chest: Crackles Cardiac: Regular rhythm Pulses: Pulses full/equal all extremities Abdomen: Non-distended Extremities: Foot edema Ankle edema Pretibial edema Calf edema Thigh edema Sacral edema Erythema Neurological: Alert & oriented Psychological: Affect & interaction appropriate Memory grossly intact Lab and Diagnostics Labs CBC Test 02/13/17 02:44 White Blood Count 6.8th/mm3 (3.8-10.1) Red Blood Count 4.29mil/mm3 (3.90-5.20) Hemoglobin 12.6g/dL (12.0-15.6) Hematocrit 39.2% (35.0-46.0) Mean Corpuscular Volume 91.4fL (81-100) Mean Corpuscular Hemoglobin 29.4pg (27.0-35.0) Mean Corpuscular Hemoglobin Concent 32.1% (32.0-37.0) Red Cell Distribution Width 15.3% (12.3-15.4) Platelet Count 301bil/L (150-400) Neutrophils (%) (Auto) 72.1% (40-74) Lymphocytes (%) (Auto) 13.9% (14-46) Monocytes (%) (Auto) 10.2% (4-12) Eosinophils (%) (Auto) 2.9% (0-5) Basophils (%) (Auto) 0.6% (0-3) CMP Test 02/12/17 12:25 02/12/17 16:23 02/12/17 21:30 02/13/17 02:44 Magnesium Level 2.1mg/dL Total Bilirubin 0.5mg/dL Aspartate Amino Transf (AST/SGOT) 39U/L Alanine Aminotransferase (ALT/SGPT) 37U/L Alkaline Phosphatase 99U/L Total Protein 5.4g/dL Albumin 3.1g/dL Hold Ferrell Top Tube Received Hemoglobin A1c 5.4% Troponin T 0.054ug/L Triglycerides Level 84mg/dL Cholesterol Level 217mg/dL LDL Cholesterol, Calculated 144.200mg/dL VLDL Cholesterol 16.800mg/dL HDL Cholesterol 56mg/dL Cholesterol/HDL Ratio 3.88 Test 02/14/17 04:05 Sodium Level 137mEq/L Potassium Level 4.1mEq/L Chloride Level 101mEq/L Carbon Dioxide Level 25mmol/L Blood Urea Nitrogen 20mg/dL Creatinine 1.12mg/dL Estimat Glomerular Filtration Rate 69mL/min Glucose Level 97mg/dL Uric Acid 7.8mg/dL Calcium Level 7.8mg/dL Result Diagram: 02/13/17 0244 02/14/17 4076 Assessment & Plan Problems: (1) Acute systolic heart failure Plan: Her symptoms are consistent with acute onset of systolic heart failure with congestion. The patient appears to be experiencing a non-ST elevation myocardial infarction. Her EKG is not impressive for anterior STEMI. She has more upsloping ST segments in the setting of LVH which is consistent with LVH pattern. She has no reciprocal changes either. She denies any real significant chest pain at this moment. We discussed about a heart catheterization in detail but given her significant orthponea she is not ready for this yet. She has had a pretty good urine output with starting diuretics and her BP has improved but still elevated. Based on history, I believe she has hypertensive heart disease with good probability of CAD. She will most definitely need an ischemic workup prior to discharge. Since her BP is still elevated and she is volume overloaded, I will like to add milrinone IV for inotropic support. I have adjusted the dosage due to her borderline reduced renal function. Continue with IV Lasix for now. If she has a good response then continue with milrinone up to 48 hours. Infusions >48h have not shown to be safe or effective. Status: Acute ICD Code: I50.21 (2) Non-ST elevation myocardial infarction (NSTEMI) Plan: Heparin has been discontinued. I will go ahead and start her on Plavix. Continue wth aspirin, statins, spirinolactone and Quinn inhibitors given the setting of acute hypertension. We will hold off beta blockers for now because she might have acute CHF which is a relative contraindication for beta skyler therapy. Hold nitroglycerin for now since we are going to start her on Milrinone infusion. Status: Acute ICD Code: I21.4 Pain Evaluation: Adequate Pain Control GI Prophylaxis: Not indicated VTE Prophylaxis: Sub-Q Heparin (Unfractionated) Resuscitation Status: DNR/DNI:Do Not Resuscitate/Intubate Todd Flores MD February 14, 2017 13:25
[2017-02-14] MEDS: DEXTROSE 5% IV SCH (15:14)
[2017-02-14] MEDS: MILRINONE IV SCH (15:14)
[2017-02-14] MEDS: Heparin 5,000 Unit/mL Inj SUBQ SCH (17:31)
--- NOTE | 2017-02-14 18:09 | PCM.CONSUR ---
Subjective Date of Service: February 14, 2017 History of Present Illness Zenobia Marcos is a 71 year old female w/ a hx of [place] who presents to the ED due to a few weeks of worsening SOB. She has a hx of HLD, HTN, cardiomyopathy and is being treated for her SOB. She reports not seeing a PCP for several decades and an orthopaedic consult was requested given her nonspecific history of several weeks of right knee pain. She reports several falls while in the shower and is uncertain when her last fall was. She reports pain with ambulation and with extremes of ROM. She denies any numbness, tingling, or weakness distally. She denies any other issues or complaints today. Reason for Consultation right knee pain Allergy Allergies: Coded Allergies: No Known Allergies (Unverified , 02/12/17) Medications No Active Prescriptions or Reported Meds Past Surgical History Surgeries: Yes (left shoulder dislocation) Patient/Family Past Surgical: Denies:: Accept Blood Products?, Anesthesia Reactions, Blood Transfusions Social History Hx Alcohol Use: Yes ("occasionally") Hx Substance Use: No Hx Tobacco Use: No PMH HEENT History History of ENT Problems?: Yes HEENT History: Positive for:: Sinus Problem (environmental allergies) Cardiovascular History History of Heart Problems?: Yes Cardiovascular History: Positive for:: Edema (bilateral LE edema) Heart Murmur (systolic murmur present) Irregular Heartbeat (irreg.irregular rhythm) Denies:: Hypertension Respiratory History of Respiratory Problem: Yes Respiratory History: Positive for:: Dyspnea Denies:: Tuberculosis Other Resp Pertinent History: hx of upper Resp. infections Neurological History Hx Neurologic Problems?: Yes Neurological History: Positive for:: Headaches Gastrointestinal History HX of GI Problems?: No Genitourinary History Hx of Gu Problems?: No Female/Male History Reproductive History Female: Denies: Currently ? Endometriosis Pelvic Inflammatory DX Problems with Breasts? Skin History Other Skin Pertinent History: bilateral lower extremities redness, swelling and warmth Musculoskeletal History Hx Musculoskeletal Problems?: No Musculoskeletal History: Positive for:: Musculoskeletal Trauma (lt.shoulder dislocation in the past) Psycho Social History Hx of Psycho/Social Problems?: No Other History Hx Any Other Health Problems?: No Other History: Denies:: Cancer ( ) Hospitalization ( ) Thyroid Disease ( ) Diabetes: No Social History Hx Alcohol Use: Yes ("occasionally")Hx Substance Use: NoHx Tobacco Use: No Smoking Status: Never Smoker Objective Exam Vital Signs & I/O Vital Sign- Last 8 Hours Date Time Temp Pulse Resp B/P Pulse Ox O2 Delivery O2 Flow Rate FiO2 02/14/17 15:24 Supplement Oxygen 02/14/17 15:24 36.5 90 20 154/72 98 Nasal Cannula 3.00 02/14/17 15:14 90 02/14/17 15:13 90 02/14/17 12:38 36.7 93 20 151/76 96 Nasal Cannula 3.00 Intake and Output- Last 8 Hour 02/14/17 Cumulative From/Thru 07:00 02/12/17 11:45 - 02/14/17 06:48 Intake Total 1068 ml 2782 ml Output Total 2240 ml 6840 ml Balance -1172 ml -4058 ml Intake Oral 830 ml 1858 ml IV Total 238 ml 924 ml Output Urine Total 2240 ml 6840 ml # Bowel Movements 0 Lab & Micro Results Laboratory Tests Test 02/13/17 21:15 02/14/17 04:05 02/14/17 10:20 Activated Partial Thromboplast Time 58.4sec (22.8-33.0) 44.3sec (22.8-33.0) 54.2sec (22.8-33.0) Sodium Level 137mEq/L (134-144) Potassium Level 4.1mEq/L (3.5-5.2) Chloride Level 101mEq/L (97-108) Carbon Dioxide Level 25mmol/L (18-29) Blood Urea Nitrogen 20mg/dL (8-27) Creatinine 1.12mg/dL (0.57-1.00) Estimat Glomerular Filtration Rate 69mL/min (>59) Glucose Level 97mg/dL (60-99) Uric Acid 7.8mg/dL (2.6-7.2) Calcium Level 7.8mg/dL (8.5-10.1) Result Diagram: 02/13/17 0244 02/14/17 0405 Review of Systems: Constitutional: Negative, except as otherwise mentioned in the history above. Ophthalmologic: Negative, except as otherwise mentioned in the history above. Cardiovascular: Negative, except as otherwise mentioned in the history above. Respiratory: Negative, except as otherwise mentioned in the history above. Gastrointestinal: Negative, except as otherwise mentioned in the history above. Genitourinary: Negative, except as otherwise mentioned in the history above. Musculoskeletal: Negative, except as otherwise mentioned in the history above. Neurological: Negative, except as otherwise mentioned in the history above. Psychiatric: Negative, except as otherwise mentioned in the history above. Hematologic/Lymphatic: Negative, except as otherwise mentioned in the history above. Allergic/Immunologic: Negative, except as otherwise mentioned in the history above. H&P Surgical Exam Exam General: Alert, Oriented X3, Cooperative, Mild Distress Musculoskeletal: CONST: WD,WN, NAD, A+OX3 OCULAR: EOMI, no conjunctivitis/icterus ENT: no deformities, scars or lesions CARDIAC: Pulse is regular. No cyanosis,clubbing,edema RESP: regular,unlabored MSK: normal light touch SPN/DPN/TN distributions. 5/5 DF/PF/Inv/Ev, 2+ DP right KNEE - scars. mild effusion - erythema - atrophy or asymmetry. TTP medial and lateral joint line alignment- neutral, edema- minimal ROM 3-50 2/2 pain active, deferred passive ext-flex + painful arc, - crepitus, - calf tenderness - instability on varus/valgus stress Signs deferred Additional Information 2 view xray of the right demonstrates a depressed lateral plateau fracture. CT scan-Mildly depressed fracture involving the posterior margin of the lateral tibial plateau (Schatzker IIIA Assessment & Plan Assessment right knee lateral tibial plateau fracture Problems: (1) Acute systolic heart failure Status: Acute ICD Code: I50.21 (2) Non-ST elevation myocardial infarction (NSTEMI) Status: Acute ICD Code: I21.4 VTE Prophylaxis: Sub-Q Heparin (Unfractionated) Plan: NWB RLE pt not a surgical candidate given medical comorbidities and medical condition recommend CT scan of right knee for further delineation of fracture PT/OT for ROM crutches or walker for ambulation per PT assessment oral pain control continue medical management per primary pt can f/u as outpatient in ortho clinic with 2 view xrays right knee to assess bony healing recommend vit D/Ca supplementation recommend DEXA as outpatient to assess osteoporosis given low impact injury please call with questions Resuscitation Status: DNR/DNI:Do Not Resuscitate/Intubate Farhat Gallardo MD February 14, 2017 18:09
--- NOTE | 2017-02-14 18:30 | NUR ---
Pain/Edema: P: persistent R knee pain I: MD notified of x-ray results. Ortho consult ordered. CT ordered of R Knee. E: patient continues to have significant R knee pain. 10/10 pain at last assessment and was given third dose of Percocet 2 tab PO this shift. Medication given prior to patient transfer to CT for scan.
--- NOTE | 2017-02-14 19:37 | DRSVH ---
PROCEDURE: CT KNEE RIGHT W/O CONTRAST ([id number]) INDICATIONS: further evaluation of rt tibial platue fracture TECHNIQUE: Noncontrast 1-1.5 mm axial sections acquired from the mid-patella to the proximal tibia, with coronal and sagittal reformats. COMPARISON: [facility], CR, XR KNEE 1 OR 2VW RT, 02/14/2017, 10:51. FINDINGS: Image quality: Excellent. Bones: Dr. involving the posterior and mid aspect of the lateral tibial plateau is noted. Lateral t ibial plateau fracture is depressed approximately 2-3 mm. Tricompartmental osteoarthritic degenerati ve changes are noted. Bones are diffusely osteopenic. Soft tissues: Suprapatellar joint effusion is noted. Vascular calcifications noted. IMPRESSION: 1. Mildly depressed fracture involving the posterior margin of the lateral tibial plateau (Schatzker IIIA Dictated by: Chante Pagan MD, PhD on 02/14/2017 at 19:32 Approved by: Chante Pagan MD, PhD on 02/14/2017 at 19:36
--- NOTE | 2017-02-14 21:41 | NUR ---
Refused Care Patient refused care and assessment at 2100. Vitals signs stable and appears comfortable.
--- NOTE | 2017-02-14 22:20 | NUR ---
svt aware of pt having eight second run of svt, self resolving, pt back in sr hr 90's, aware of k level and last mg level done few days ago, see order for mg level,
--- NOTE | 2017-02-14 22:21 | NUR ---
report pt report given to next rn at 2200,
[2017-02-15] VITALS (9 sets, daily range): BP systolic 105–174; BP diastolic 50–76; PULSE 94–109; RESP 21–29; O2SAT 94–98
[2017-02-15] MEDS: Heparin 5,000 Unit/mL Inj SUBQ SCH ×3 (00:30→16:11)
[2017-02-15] MEDS: DEXTROSE 5% IV SCH ×3 (01:39→19:42)
[2017-02-15] MEDS: MILRINONE IV SCH ×3 (01:39→19:42)
[2017-02-15] MEDS: Furosemide 10 mg/mL 4 mL Inj IVPUSH SCH ×2 (06:00→17:28)
--- NOTE | 2017-02-15 06:42 | NUR ---
Refusal of care Pt refused to have all scheduled medications during the shift. Pt refused personal care and would not allow for a physical assessment. Only VS were able to be obtained.
[2017-02-15] MEDS: oxyCODONE-Acetamin 5-325 mg Tablet PO PRN ×2 (08:41→16:48)
--- NOTE | 2017-02-15 10:03 | DRSVH ---
PROCEDURE: US DUPLEX DOPPLER UNILATERAL LEG ARTERIES, RIGHT INDICATIONS: 71-year-old woman with ongoing unilateral leg pain. TECHNIQUE: Color and pulse Doppler interrogation was performed of the right lower extremity arterial system, wit h image documentation. COMPARISON: [facility], CR, XR KNEE 1 OR 2VW RT, 02/14/2017, 10:51. FINDINGS: Triphasic waveform throughout the right lower to mid arteries. Vascular Ultrasound Procedure Report Findings(Artery of Lower Extremity)(Right) Common Femoral Artery(Distal) Velocity: 257.40 cm/s Profunda Femoris Artery(Proximal) Velocity: 109.50 cm/s Superficial Femoral Artery(Proximal) Velocity: 234.30 cm/s Superficial Femoral Artery(Mid-longitudinal) Velocity: 192 cm/s Superficial Femoral Artery(Distal) Velocity: 132.80 cm/s Popliteal Artery(Mid-longitudinal) Velocity: 159.20 cm/s Posterior Tibial Artery(Distal) Velocity: 76.40 cm/s Dorsalis Pedis Artery(Distal) Velocity: 90.20 cm/s Greyscale findings: Normal IMPRESSION: No hemodynamic significant stenosis in the right lower extremity arteries. Dictated by: Pepe Escalante M.D. on 02/15/2017 at 10:00 Approved by: Pepe Escalante M.D. on 02/15/2017 at 10:02
[2017-02-15] MEDS ORDERED: Nitroglycerin 2% 1 Gm Ointment TOPICAL SCH (12:15)
[2017-02-15] MEDS ORDERED: Furosemide 10 mg/mL 4 mL Inj IVPUSH ONE (12:15)
--- NOTE | 2017-02-15 12:18 | PCM.PNCARD ---
Subjective Date of service February 15, 2017 Chief Complaint Progressive shortness of breath History of Present Illness 71yoF with no past medical hx who had avoided healthcare for 7 years presents with progressive shortness of breath for 2-3 weeks prior to admission. She initially complained of shortness of breath on exertion, orthopnea, and PND with bilateral lower extremity edema. She has complained of mild chest discomfort, described as a band-like tightness around her chest for the past 2- 3 weeks. EKG showed LVH pattern with ST changes. Troponins were elevated on admission. CXR showed bilateral pleural effusions and pulmonary edema. Echo showed EF of 30-35% with global LV hypokinesis. She has been diuresed with Lasix and spironolactone. Early this morning, she was significantly confused and refused heparin and Lasix. Today, she appears alert and oriented and denies confusion. She reports her PND has improved significantly and she denies any further chest discomfort or shortness of breath at rest. She still reports significant orthopnea and lower extremity edema. PROBLEM LIST: # Acute newly diagnosed systolic CHF exacerbation (EF 30% on echo 02/12/17) # NSTEMI # Hypertension # Hyperlipidemia Constitutional: Reports: Weakness, Denies: Chills, Fever Eyes: Denies: Vision Changes Cardiovascular: Reports: Edema, SOB on Exertion, SOB while laying flat, Denies: Chest Pain, Irregular Heart Rate, Palpitations Respiratory: Reports: Shortness of Breath, Denies: Cough, Wake up Gasping for Breath, Wheezing Gastrointestinal: Denies: Abdominal Pain, Constipation, Nausea, Vomiting Genitourinary: Denies: Dysuria Musculoskeletal: Reports: Other (Right leg pain) Skin: Denies: Rash Neurological: Reports: Confusion, Difficulty Walking, Denies: Change in Speech Exam Vital Signs Vital Sign - Last Date Time Temp Pulse Resp B/P Pulse Ox O2 Delivery O2 Flow Rate FiO2 02/15/17 10:16 109 02/15/17 08:30 36.9 22 174/55 96 Nasal Cannula 2.00 Intake and Output 02/14/17 02/14/17 02/15/17 Cumulative From/Thru 15:00 23:00 07:00 02/12/17 11:45 - 02/15/17 06:32 Intake Total 1102 ml 292 ml 4176 ml Output Total 750 ml 700 ml 8290 ml Balance 352 ml -408 ml -4114 ml Intake Oral 970 ml 200 ml 3028 ml IV Total 132 ml 92 ml 1148 ml Output Urine Total 750 ml 700 ml 8290 ml # Bowel Movements 0 Additional Information: General appearance: No apparent distress, thin-appearing, pleasant, cooperative HEET: Normocephalic, atraumatic, no scleral icterus, mucous membranes moist Neck: Significant JVD present. Carotid murmur heard bilaterally. Cardiovascular: RRR with occasional premature beats, normal S1 and normal S2, systolic 4/6 murmur heard at left sternal border, diastolic 2/6 murmur heard at right sternal border, PMI nondisplaced, bilateral 3+ lower extremity edema. Pulses normal in all extremities. Respiratory: Crackles heard throughout, with occasional expiratory wheezes. Decreased lung sounds at bases. Abdomen: Soft, nontender, nondistended, + bowel sounds Neuro: Alert, no facial droop, tongue midline, able to walk without any difficulty Psych: Appropriate affect Skin: No rashes on face, neck, and lower extremities Lab and Diagnostics Result Diagram: 02/13/17 0244 02/15/17 0750 X-Rays, CTs and MRIs CXR (02/12/17): Bilateral pleural effusions and pulmonary edema in bilateral lung herrmann. 12-lead ECG Telemetry reviewed 02/15/17: Sinus rhythm with episodes of sinus tachycardia, brief episodes of SVT that appear to be atrial tachycardia, and nonsustained runs of VT (3-5 beats), with frequent PACs and PVCs. Assessment & Plan Assessment 71 yo frail woman with untreated HTN history admitted with dyspnea and chest pain from newly diagnosed systolic heart failure: #Acute systolic congestive heart failure: Pt presents with signs and symptoms of acute volume overload. Likely new onset CHF secondary to severe untreated hypertension. CXR showed pleural effusions and pulmonary edema. Pt has not had prior workup or treatment as she avoided physicians for 7 years. She remains hypertensive and will require more aggressive blood pressure control. She will require further afterload reduction with vasodilators. We will add hydralazine PO and nitro paste today. She continues to be volume overloaded, so we will continue diuretics. She missed her Lasix dose this morning, so will add one- time dose of Lasix now. She does not appear to be in decompensated heart failure at this time, so we will discontinue milrinone. - Continue lisinopril 20 mg PO daily - Continue Lasix 40 mg IV BID with goal net negative 2L - Continue spironolactone 25 mg PO daily - Added hydralazine 25 mg PO QID to get to goal SBP of < 120 - Nitro paste 1 inch for HTN management - Will add carvedilol or metoprolol XL prior to discharge once the patient is euvolemic - BMP and Mg daily - Stop milrinone gtt as patient needs afterload reduction more than inotropic support at present. If afterload reduction doesn't help achieve diuretic goal, we can readdress the need for inotropic support #Hypertension: Pt is significantly hypertensive today with BP 174/55. Her blood pressure will require more aggressive control. - Continue lisinopril and spironolactone - Start hydralazine 25 mg PO QID - Recheck BP in the afternoon. #NSTEMI: EKG showed ST changes, but these may be due to LVH. Revisited the topic of heart catheterization but pt is hesitant to undergo any invasive procedures at this time, and wishes to have improvement in her orthopnea before discussing it further. - Nitroglycerin SL PRN - Continue ASA 81 mg PO daily - Continue Plavix 75 mg PO daily - Start atorvastatin 40mg qhs - Defer ischemia evaluation to outpatient or if patient has recurrent symptoms of angina Problems: Pain Evaluation: Adequate Pain Control GI Prophylaxis: Not indicated VTE Prophylaxis: Sub-Q Heparin (Unfractionated) Resuscitation Status: DNR/DNI:Do Not Resuscitate/Intubate Attending Statement I saw, examined, and evaluated the patient with Dr. Dav Perdue on 2016 and agree with the note as above along with my edits. Dav Perdue February 15, 2017 12:18 Ger Nicole MD February 15, 2017 14:06 Neurological: Alert & oriented No gross motor or sensory deficits Oriented to time, person & place Psychological: Affect & interaction appropriate Lab and Diagnostics Result Diagram: 02/13/17 0244 02/15/17 0750 X-Rays, CTs and MRIs CXR (02/12/17): Bilateral pleural effusions and pulmonary edema in bilateral lung herrmann. 12-lead ECG Telemetry reviewed 02/15/17: Sinus rhythm with episodes of sinus tachycardia, brief episodes of SVT that appear to be atrial tachycardia, and nonsustained runs of VT (3-5 beats), with frequent PACs and PVCs. Assessment & Plan Assessment 71 yo frail woman with untreated HTN history admitted with dyspnea and chest pain from newly diagnosed systolic heart failure: #Acute systolic congestive heart failure: Pt presents with signs and symptoms of acute volume overload. Likely new onset CHF secondary to severe untreated hypertension. CXR showed pleural effusions and pulmonary edema. Pt has not had prior workup or treatment as she avoided physicians for 7 years. She remains hypertensive and will require more aggressive blood pressure control. She will require further afterload reduction with vasodilators. We will add hydralazine PO and nitro paste today. She continues to be volume overloaded, so we will continue diuretics. She missed her Lasix dose this morning, so will add one- time dose of Lasix now. She does not appear to be in decompensated heart failure at this time, so we will discontinue milrinone. - Continue lisinopril 20 mg PO daily - Continue Lasix 40 mg IV BID with goal net negative 2L - Continue spironolactone 25 mg PO daily - Added hydralazine 25 mg PO QID to get to goal SBP of < 120 - Nitro paste 1 inch for HTN management - Will add carvedilol or metoprolol XL prior to discharge once the patient is euvolemic - BMP and Mg daily - Stop milrinone gtt as patient needs afterload reduction more than inotropic support at present. If afterload reduction doesn't help achieve diuretic goal, we can readdress the need for inotropic support #Hypertension: Pt is significantly hypertensive today with BP 174/55. Her blood pressure will require more aggressive control. - Continue lisinopril and spironolactone - Start hydralazine 25 mg PO QID - Recheck BP in the afternoon. #NSTEMI: EKG showed ST changes, but these may be due to LVH. Revisited the topic of heart catheterization but pt is hesitant to undergo any invasive procedures at this time, and wishes to have improvement in her orthopnea before discussing it further. - Nitroglycerin SL PRN - Continue ASA 81 mg PO daily - Continue Plavix 75 mg PO daily - Defer ischemia evaluation to outpatient or if patient has recurrent symptoms of angina Problems: Pain Evaluation: Adequate Pain Control GI Prophylaxis: Not indicated VTE Prophylaxis: Sub-Q Heparin (Unfractionated) Resuscitation Status: DNR/DNI:Do Not Resuscitate/Intubate Attending Statement I saw, examined, and evaluated the patient with Dr. Dav Perdue on 2016 and agree with the note as above along with my edits. Dav Perdue February 15, 2017 12:18 Ger Nicole MD February 15, 2017 14:06
--- NOTE | 2017-02-15 13:34 | NUR ---
Evaluation completed. Please go to "Notes" then click on "Assessments and Notes" (bottom left corner of screen). Then select appropriate discipline tab on top of screen.
--- NOTE | 2017-02-15 13:45 | PCM.PNMED ---
Subjective Date of Service February 15, 2017 Subjective Zenobia Marcos is a 71 year old woman who has a history of avoiding health care who presented to the [facility] ED with a complaint of shortness of breath for the last 2-3 weeks. Now under treatment for acute heart failure with reduced EF. Hospital day #4. Overnight: No acute events. Patient refused care overnight. Today: The patient states she is feeling somewhat better and does have decreased shortness of breath. She notes that her edema on her legs is still quite severe. She also notes fatigue that only mildly improved. The remainder of ROS is negative except as noted above. Exam Vital Signs Vital Sign - Last Date Time Temp Pulse Resp B/P Pulse Ox O2 Delivery O2 Flow Rate FiO2 02/15/17 12:31 36.6 104 21 105/57 96 Nasal Cannula 2.00 Intake and Output 02/14/17 02/14/17 02/15/17 Cumulative From/Thru 15:00 23:00 07:00 02/12/17 11:45 - 02/15/17 06:32 Intake Total 1102 ml 292 ml 4176 ml Output Total 750 ml 700 ml 8290 ml Balance 352 ml -408 ml -4114 ml Intake Oral 970 ml 200 ml 3028 ml IV Total 132 ml 92 ml 1148 ml Output Urine Total 750 ml 700 ml 8290 ml # Bowel Movements 0 Exam HEENT: Normocephalic, atraumatic. External ears without defect. Right cataract present, left pupil reactive to light. Anicteric sclerae, moist conjunctivae, and no lid lag. Oropharynx free of erythema and cobble stoning with moist mucosa. Neck: Supple with full range of motion. No jugular venous distension. No lymphadenopathy or thyromegaly. Cardiovascular: Irregular rhythm, normal rate with grade 2 out of 5 systolic murmur. Pulmonary: Crackles appreciated bilaterally at the bases. Normal respiratory effort with no use of accessory muscles. Abdomen: Bowel tones present. Soft, nontender, mildly distended. No hepatosplenomegaly or masses appreciated. Extremities: Pitting edema up to the thigh bilaterally, mildly improved from yesterday. No clubbing. Upper extremity edema reduced. Skin: Normal temperature. Bilateral lower extremities with blanching erythema when elevated. Neurological: Cranial nerves grossly intact. Normal muscle strength, tone, and bulk. Reflexes, coordination, and sensory function within normal limits. Psychiatric: Normal mood and affect. Alert and oriented to person, place, and time. IVs and Medications Medications Reviewed: Medications were reviewed in detail Lab and Diagnostics Result Diagram: 02/13/17 0244 02/15/17 0750 X-Rays, CTs and MRIs X-RAY CHEST ONE VIEW, PORTABLE IMPRESSION: Bibasilar opacities obscure the diaphragms, most likely representing small to moderate sized bilateral pleural effusions with associated atelectasis. However, superimposed pneumonia or pulmonary edema cannot be excluded. Dictated by: King Corey M.D. on 02/12/2017 at 11:28 US VEINOUS LEG DUPLEX UNILATERAL, RIGHT IMPRESSION: No gross evidence of deep venous thrombosis. However, exam is considered suboptimal as patient could not tolerate compression. Dictated by: Karie Wiley M.D. on 02/13/2017 at 16:46 US DUPLEX DOPPLER UNILATERAL LEG ARTERIES, RIGHT IMPRESSION: No hemodynamic significant stenosis in the right lower extremity arteries. Dictated by: Pepe Escalante M.D. on 02/15/2017 at 10:00 CT KNEE RIGHT W/O CONTRAST IMPRESSION: Mildly depressed fracture involving the posterior margin of the lateral tibial plateau (Schatzker IIIA) Dictated by: Chante Pagan MD, PhD on 02/14/2017 at 19:32 Cardiac Echo Impressions Interpretation Summary The left ventricle is moderate-severely dilated. There is moderate concentric left ventricular hypertrophy. Left ventricular systolic function is moderate to severely reduced. The ejection fraction is estimated to be 30-35%. There is moderate to severe global hypokinesis of the left ventricle. The right ventricle is normal in size and function. The right ventricular systolic pressure is estimated at 63 mmHg assuming a right atrial pressure of 15 mm Hg. The left atrium is severely dilated. The right atrium is mild to moderately dilated. There is moderate mitral regurgitation. There is mild aortic valve sclerosis. There is moderate aortic regurgitation. There is mild to moderate tricuspid regurgitation. The aortic Sinus(es) of Valsalva are moderately dilated. The ascending aorta is moderately enlarged. There is a small pericardial effusion noted. There are no echocardiographic or Doppler indications for cardiac tamponade. There are moderately large-sized bilateral pleural effusions noted. Assessment & Plan Zenobia Marcos is a 71 year old woman who has a history of avoiding health care who presented to the [facility] ED with a complaint of shortness of breath for the last 2-3 weeks. Now under treatment for acute heart failure with reduced EF. Hospital day #4. Acute heart failure with reduced EF, present on admission, active -ECHO reveals an EF of 30% -Cardiology consulted, will follow recommendations -IV heparin and Nitroglycerin drip stopped. -ASA, statin, ACEi, Lasix per cardiology. Milrinone added by cardiology 02/14 -Considering initiation of beta-skyler prior to discharge -2 L fluid restriction, low sodium diet, CHF education Elevated troponin secondary to CHF exacerbation, present on admission, active -As above, although troponin level remained stable without a peak more suggestive of chronic stress -Regardless, patient declines invasive treatment options, requesting medical management only. Mildly depressed fracture of the lateral tibial plateau, present on admission, ongoing. - Pain management currently achieved with when necessary Percocet - As patient is still severely edematous and currently undergoing aggressive treatment for her heart failure will not proceed with any interventions - Will contact orthopedic surgery for imaging review and recommendations Hyperlipidemia: - Statin therapy as noted above Hyperglycemia -A1C normal Hypertension -As above -Currently borderline normotensive since the initiation of Milrinone CODE STATUS: DO NOT RESUSCITATE/DO NOT INTUBATE Disposition: Anticipate patient will be in the hospital for 2-3 more days as she is evaluated and treated for the above conditions. GI Prophylaxis: Not indicated VTE Prophylaxis: Sub-Q Heparin (Unfractionated) Resuscitation Status: DNR/DNI:Do Not Resuscitate/Intubate Time spent 35 minutes Attending Statement I interviewed and examined the patient on rounds today. I agree with the assessment and plan as stated above. Tamanna Mai DO February 15, 2017 13:15 Kobi Stark MD February 15, 2017 17:59
--- NOTE | 2017-02-15 17:03 | NUR ---
P:Hypertension I: Milrinone gtt off. Apresoline po started. Bp this am 179/55 now Bp 122/68. Medicated x2 for 4/10 leg pain with good effectiveness Up with PT at bedside.Taking diet well. Pt on fluid restriction and doing well with it. Lasix 40mg IV given with Garsia with 1200cc UOP. Dr. Nicole aware of BP and output. Pt on 2L/NC and c/o feeling a little SOB. Notified Bonnie and O2 increased to 4L/NC and percocet one tablet po given. Lower legs remains the same with no increase in swelling and redness. US of legs done this am. E: Stable S: Alert and oriented. Uses call light appropriately. Frequent rounding.
[2017-02-15] MEDS ORDERED: Chlorothiazide Inj 500 MG in Dextrose 5% 50 ML IV SCH (20:00)
--- NOTE | 2017-02-15 21:47 | NUR ---
Mentation Pt pleasant and cooperative with care, alert and orientated x4. Previous night, pt refused care and assessment. Medications and assessment done early this shift as possible "sundowning" might be a part of pt's condition.
[2017-02-16] VITALS (10 sets, daily range): BP systolic 90–140; BP diastolic 31–76; PULSE 83–96; RESP 13–27; O2SAT 95–98
[2017-02-16] MEDS: Heparin 5,000 Unit/mL Inj SUBQ SCH ×3 (00:05→16:16)
[2017-02-16] MEDS ORDERED: Furosemide 10 mg/mL 4 mL Inj IVPUSH ONE (01:00)
[2017-02-16] MEDS ORDERED: Nitroglycerin 2% 1 Gm Ointment TOPICAL ONE (02:15)
[2017-02-16] MEDS: oxyCODONE-Acetamin 5-325 mg Tablet PO PRN ×3 (02:25→20:13)
[2017-02-16] MEDS: Furosemide 10 mg/mL 4 mL Inj IVPUSH SCH ×2 (06:00→18:42)
[2017-02-16 07:38] LABS: BASOPHILS % (AUTO) 0.3 % (0-3); EOSINOPHILS % (AUTO) 4.2 % (0-5); MONOCYTES % (AUTO) 12.3 % (4-12); Mean Corpuscular Hemoglobin 29.4 pg (27.0-35.0); Mean Corpuscular Volume 92.9 fL (81-100); NEUTROPHILS % (AUTO) 71.2 % (40-74); Platelet Count 224 bil/L (150-400)
[2017-02-16] MEDS: MILRINONE IV SCH ×2 (08:01→20:06)
[2017-02-16] MEDS: DEXTROSE 5% IV SCH ×2 (08:01→20:06)
--- NOTE | 2017-02-16 08:04 | PCM.PNCARD ---
Subjective Date of service February 16, 2017 Chief Complaint Progressive shortness of breath History of Present Illness 71yoF with no past medical hx who had avoided healthcare for 7 years presents with progressive shortness of breath for 2-3 weeks prior to admission. She initially complained of shortness of breath on exertion, orthopnea, and PND with bilateral lower extremity edema. She has complained of mild chest discomfort, described as a band-like tightness around her chest for the past 2- 3 weeks. EKG showed LVH pattern with ST changes. Troponins were elevated on admission. CXR showed bilateral pleural effusions and pulmonary edema. Echo showed EF of 30-35% with global LV hypokinesis. She has been diuresed with Lasix and spironolactone. Overnight, she remained alert and oriented x3, without any confusion. This morning, she reports improved shortness of breath, orthopnea, and edema. She reports mild occasional lightheadedness. She denies PND, chest pain, palpitations, or syncope. PROBLEM LIST: # Acute systolic CHF exacerbation (EF 30% on echo 02/12/17) # NSTEMI # Hypertension # Hyperlipidemia # Frailty Subjective: Constitutional: Reports: Weakness, Denies: Chills, Fever Eyes: Denies: Vision Changes Cardiovascular: Reports: Edema, SOB on Exertion, SOB while laying flat, Denies: Chest Pain, Irregular Heart Rate, Palpitations Respiratory: Reports: Shortness of Breath, Denies: Cough, Wake up Gasping for Breath, Wheezing Gastrointestinal: Denies: Abdominal Pain, Constipation, Nausea, Vomiting Genitourinary: Denies: Dysuria Musculoskeletal: Reports: Other (Right leg pain) Skin: Denies: Rash Neurological: Reports: Difficulty Walking, Denies: Change in Speech, Confusion Exam Vital Signs Vital Sign - Last Date Time Temp Pulse Resp B/P Pulse Ox O2 Delivery O2 Flow Rate FiO2 02/16/17 04:30 Supplement Oxygen 02/16/17 03:05 89 16 126/63 98 4.00 02/15/17 22:30 37.3 Intake and Output 02/15/17 02/15/17 02/16/17 Cumulative From/Thru 15:00 23:00 07:00 02/12/17 11:45 - 02/16/17 06:05 Intake Total 664 ml 200 ml 5040 ml Output Total 1450 ml 6000 ml 64896 ml Balance -786 ml -5800 ml -24415 ml Intake Oral 630 ml 200 ml 3858 ml IV Total 34 ml 1182 ml Output Urine Total 1450 ml 6000 ml 98484 ml # Bowel Movements 0 Additional Information: General appearance: No apparent distress, thin-appearing, pleasant, cooperative HEET: Normocephalic, atraumatic, no scleral icterus, mucous membranes moist Neck: Mild JVD present. Carotid murmur heard bilaterally. Cardiovascular: RRR with occasional premature beats, normal S1 and normal S2, systolic 4/6 murmur heard at left sternal border, diastolic 2/6 murmur heard at right sternal border, PMI nondisplaced, bilateral 1+ lower extremity edema. Pulses normal in all extremities. Respiratory: Crackles at bilateral bases with decreased lung sounds at bases. Abdomen: Soft, nontender, nondistended, + bowel sounds Neuro: Alert, no facial droop, tongue midline, able to walk without any difficulty Psych: Appropriate affect Skin: No rashes on face, neck, and lower extremities Lab and Diagnostics Result Diagram: 02/16/17 0710 02/15/17 0750 Assessment & Plan Assessment #Acute systolic congestive heart failure: Pt presented with signs and symptoms of acute volume overload. Likely new onset CHF secondary to severe hypertension. CXR showed pleural effusions and pulmonary edema. Pt has not had prior workup or treatment as she avoided physicians for 7 years. Her hypertension improved with lisinopril and hydralazine, and SBP now remains mostly in 120s. Will continue further afterload reduction with vasodilators. Added hydralazine PO and nitro paste to decrease afterload. Her volume status has significantly improved since yesterday, as have her symptoms. However, she developed GINA, likely due to thiazide related overdiuresis, so we will discontinue lisinopril and chlorothiazide for now and continue diuresis with Lasix. She does not appear to be in decompensated heart failure at this time, so milrinone was discontinued. - Stopped lisinopril - Stopped chlorothiazide gtt - Increased hydralazine to 50 mg PO QID. Uptitrate further if needed to keep SBP < 130 - Continue spironolactone 25 mg PO daily - Consider starting low dose beta-skyler before discharge if tolerated - Nitro paste 1 inch - BMP and Mg daily - Stopped milrinone #Hypertension: Her BP is more controlled but continues to rise this morning. Goal BP <120/80. Her blood pressure will require more aggressive control. - Continue spironolactone - Increased hydralazine 50 mg PO QID - Frequent BP measurements #Acute kidney injury: Pt developed mild GINA after diuresing yesterday; Cr increased from 1.09 to 1.36. Will discontinue lisinopril and chlorothiazide - Stopped lisinopril - Stopped chlorothiazide gtt - Continue to monitor BMP #NSTEMI: EKG showed ST changes, but these may be due to LVH. Revisited the topic of heart catheterization but pt is hesitant to undergo any invasive procedures at this time, and wishes to have improvement in her orthopnea before discussing it further. - Nitroglycerin SL PRN - Continue ASA 81 mg PO daily - Discontinued Plavix #Frailty: Pt appears quite thin and reports severe weakness and inability to stand since being hospitalized. Recommend continuing physical therapy. - Continue PT Problems: (1) Acute systolic heart failure Status: Acute ICD Code: I50.21 (2) Non-ST elevation myocardial infarction (NSTEMI) Status: Acute ICD Code: I21.4 Pain Evaluation: Adequate Pain Control GI Prophylaxis: Not indicated VTE Prophylaxis: Sub-Q Heparin (Unfractionated) Resuscitation Status: DNR/DNI:Do Not Resuscitate/Intubate Attending Statement I saw, examined, and evaluated the patient with Dr. Dav Perdue on 2016 and agree with the note as above along with my edits. Dav Perdue February 16, 2017 08:04 Ger Nicole MD February 16, 2017 10:25
--- NOTE | 2017-02-16 13:49 | PCM.PNMED ---
Subjective Date of Service February 16, 2017 Subjective Zenobia Marcos is a 71 year old woman who has a history of avoiding health care who presented to the [facility] ED with a complaint of shortness of breath for the last 2-3 weeks. Now under treatment for acute heart failure with reduced EF. Hospital day #5. Overnight: No acute events. Today: The patient states that her edema has improved since yesterday. She still notes edema up to her thighs. She is able to lay flat for a longer period of time. She denies any chest pain, fevers, chills, nausea. The remainder of ROS is negative except as noted above. Exam Vital Signs Vital Sign - Last Date Time Temp Pulse Resp B/P Pulse Ox O2 Delivery O2 Flow Rate FiO2 02/16/17 13:37 36.8 93 27 117/64 95 Nasal Cannula 4.00 Intake and Output 02/15/17 02/15/17 02/16/17 Cumulative From/Thru 15:00 23:00 07:00 02/12/17 11:45 - 02/16/17 06:05 Intake Total 664 ml 200 ml 5040 ml Output Total 1450 ml 6000 ml 31855 ml Balance -786 ml -5800 ml -28540 ml Intake Oral 630 ml 200 ml 3858 ml IV Total 34 ml 1182 ml Output Urine Total 1450 ml 6000 ml 11976 ml # Bowel Movements 0 Exam General: No acute distress, thin, frail elderly woman in a hospital bed. HEENT: Normocephalic, atraumatic. External ears without defect. Right cataract present, left pupil reactive to light. Anicteric sclerae, moist conjunctivae, and no lid lag. Oropharynx free of erythema and cobble stoning with moist mucosa. Neck: Supple with full range of motion. No jugular venous distension. No lymphadenopathy or thyromegaly. Cardiovascular: Irregular rhythm, normal rate with grade 2 out of 5 systolic murmur. Pulmonary: Clear to auscultation bilaterally, without any wheezes, rales, rhonchi. Normal respiratory effort with no use of accessory muscles. Abdomen: Bowel tones present. Soft, nontender, mildly distended. No hepatosplenomegaly or masses appreciated. Extremities: Pitting edema up to the thigh bilaterally, significantly improved from yesterday. No clubbing. Upper extremity edema reduced. Skin: Normal temperature. Bilateral lower extremities with blanching erythema when elevated. Neurological: Cranial nerves grossly intact. Normal muscle strength, tone, and bulk. Reflexes, coordination, and sensory function within normal limits. Psychiatric: Normal mood and affect. Alert and oriented to person, place, and time. IVs and Medications Medications Reviewed: Medications were reviewed in detail Lab and Diagnostics Result Diagram: 02/16/17 0710 02/16/17 0710 X-Rays, CTs and MRIs X-RAY CHEST ONE VIEW, PORTABLE IMPRESSION: Bibasilar opacities obscure the diaphragms, most likely representing small to moderate sized bilateral pleural effusions with associated atelectasis. However, superimposed pneumonia or pulmonary edema cannot be excluded. Dictated by: King Corey M.D. on 02/12/2017 at 11:28 US VEINOUS LEG DUPLEX UNILATERAL, RIGHT IMPRESSION: No gross evidence of deep venous thrombosis. However, exam is considered suboptimal as patient could not tolerate compression. Dictated by: Karie Wiley M.D. on 02/13/2017 at 16:46 US DUPLEX DOPPLER UNILATERAL LEG ARTERIES, RIGHT IMPRESSION: No hemodynamic significant stenosis in the right lower extremity arteries. Dictated by: Pepe Escalante M.D. on 02/15/2017 at 10:00 CT KNEE RIGHT W/O CONTRAST IMPRESSION: Mildly depressed fracture involving the posterior margin of the lateral tibial plateau (Schatzker IIIA) Dictated by: Chante Pagan MD, PhD on 02/14/2017 at 19:32 Cardiac Echo Impressions Interpretation Summary The left ventricle is moderate-severely dilated. There is moderate concentric left ventricular hypertrophy. Left ventricular systolic function is moderate to severely reduced. The ejection fraction is estimated to be 30-35%. There is moderate to severe global hypokinesis of the left ventricle. The right ventricle is normal in size and function. The right ventricular systolic pressure is estimated at 63 mmHg assuming a right atrial pressure of 15 mm Hg. The left atrium is severely dilated. The right atrium is mild to moderately dilated. There is moderate mitral regurgitation. There is mild aortic valve sclerosis. There is moderate aortic regurgitation. There is mild to moderate tricuspid regurgitation. The aortic Sinus(es) of Valsalva are moderately dilated. The ascending aorta is moderately enlarged. There is a small pericardial effusion noted. There are no echocardiographic or Doppler indications for cardiac tamponade. There are moderately large-sized bilateral pleural effusions noted. Assessment & Plan Zenobia Marcos is a 71 year old woman who has a history of avoiding health care who presented to the [facility] ED with a complaint of shortness of breath for the last 2-3 weeks. Now under treatment for acute heart failure with reduced EF. Hospital day #5. Acute heart failure with reduced EF, present on admission, active, improving -ECHO reveals an EF of 30% -Cardiology consulted, will follow recommendations -IV heparin and Nitroglycerin drip stopped. -ASA, statin, Lasix per cardiology. -Considering initiation of beta-skyler prior to discharge -2 L fluid restriction, low sodium diet, CHF education -Patient was given an infusion of chlorothiazide which resulted in notable diuresis. Hold off at this time and allow her body compartments to re- equilibrate. Acute kidney injury secondary to prerenal azotemia, not present on admission, active -Comparing the patient's admission creatinine of 0.9 to her current creatinine of 1.36, meets criteria of an increase in creatinine of greater than 0.3 -Should hold off on diuresis for the remainder of the day. Anticipate this will improve. -Stop lisinopril -Continue to monitor Elevated troponin secondary to CHF exacerbation, present on admission, active -As above, although troponin level remained stable without a peak more suggestive of chronic stress -Regardless, patient declines invasive treatment options, requesting medical management only. Mildly depressed fracture of the lateral tibial plateau, present on admission, ongoing. -Pain management currently achieved with when necessary Percocet -As patient is still severely edematous and currently undergoing aggressive treatment for her heart failure will not proceed with any interventions -Will contact orthopedic surgery for imaging review and recommendations Hyperlipidemia: - Statin therapy as noted above Hyperglycemia -A1C normal Hypertension -As above -Currently borderline normotensive since the initiation of Milrinone CODE STATUS: DO NOT RESUSCITATE/DO NOT INTUBATE Disposition: Anticipate patient will be in the hospital for 2-3 more days as she is evaluated and treated for the above conditions. GI Prophylaxis: Not indicated VTE Prophylaxis: Sub-Q Heparin (Unfractionated) Resuscitation Status: DNR/DNI:Do Not Resuscitate/Intubate Attending Statement I interviewed and examined the patient on rounds today. I agree with the assessment and plan as stated above. Tamanna Mai DO February 16, 2017 13:41 Kobi Stark MD February 16, 2017 17:01
--- NOTE | 2017-02-16 18:58 | NUR ---
Mentation Pt cooperative with care, A&Ox3, cooperative with care today. No c/o pain or SOB. BP reading low this AM for morning RN, PO Hydralazine held until reassessment of BP. BP WNL, PO medication given. Will continue to monitor with frequent rounds.
[2017-02-17] VITALS (8 sets, daily range): BP systolic 115–141; BP diastolic 53–68; PULSE 73–115; RESP 18–22; O2SAT 97–100
[2017-02-17] MEDS: Heparin 5,000 Unit/mL Inj SUBQ SCH ×3 (00:57→16:29)
[2017-02-17] MEDS: oxyCODONE-Acetamin 5-325 mg Tablet PO PRN ×2 (00:58→15:31)
--- NOTE | 2017-02-17 02:23 | NUR ---
Mentation: Pt during the night became more confused and stated she was hearing voices outside several times and other strange noises.
[2017-02-17 03:23] LABS: BASOPHILS % (AUTO) 0.4 % (0-3); EOSINOPHILS % (AUTO) 6.2 % (0-5); MONOCYTES % (AUTO) 14.5 % (4-12); Mean Corpuscular Volume 92.9 fL (81-100); NEUTROPHILS % (AUTO) 64.2 % (40-74); Platelet Count 227 bil/L (150-400)
[2017-02-17] MEDS: Furosemide 10 mg/mL 4 mL Inj IVPUSH SCH (06:14)
[2017-02-17] MEDS: MILRINONE IV SCH ×2 (08:22→19:34)
[2017-02-17] MEDS: DEXTROSE 5% IV SCH ×2 (08:22→19:34)
--- NOTE | 2017-02-17 08:39 | PCM.PNCARD ---
Subjective Date of service February 17, 2017 Chief Complaint Progressive shortness of breath History of Present Illness 71yoF with no past medical hx who had avoided healthcare for 7 years presents with progressive shortness of breath for 2-3 weeks prior to admission. She initially complained of shortness of breath on exertion, orthopnea, and PND with bilateral lower extremity edema. She has complained of mild chest discomfort, described as a band-like tightness around her chest for the past 2- 3 weeks. EKG showed LVH pattern with ST changes. Troponins were elevated on admission. CXR showed bilateral pleural effusions and pulmonary edema. Echo showed EF of 30-35% with global LV hypokinesis. She has been diuresed with Lasix and spironolactone. Overnight, she became slightly confused. She reports improved edema, and states her shortness of breath is similar to yesterday. She reports occasional lightheadedness. She denies PND, chest pain, palpitations, or syncope. PROBLEM LIST: #Acute systolic CHF exacerbation (EF 30% on echo 02/12/17) #NSTEMI #Hypertension #Hyperlipidemia Subjective: Constitutional: Reports: Weakness, Denies: Chills, Fever Eyes: Denies: Vision Changes Cardiovascular: Reports: Edema, SOB on Exertion, SOB while laying flat, Denies: Chest Pain, Irregular Heart Rate, Palpitations Respiratory: Reports: Shortness of Breath, Denies: Cough, Wake up Gasping for Breath, Wheezing Gastrointestinal: Denies: Abdominal Pain, Constipation, Nausea, Vomiting Genitourinary: Denies: Dysuria Musculoskeletal: Reports: Other (Right leg pain) Skin: Denies: Rash Neurological: Reports: Difficulty Walking, Denies: Change in Speech, Confusion Exam Vital Signs Vital Sign - Last Date Time Temp Pulse Resp B/P Pulse Ox O2 Delivery O2 Flow Rate FiO2 02/17/17 08:03 36.9 73 18 135/53 97 Nasal Cannula 3.00 Intake and Output 02/16/17 02/16/17 02/17/17 Cumulative From/Thru 15:00 23:00 07:00 02/12/17 11:45 - 02/17/17 05:58 Intake Total 420 ml 518 ml 5978 ml Output Total 1750 ml 2400 ml 65431 ml Balance -1330 ml -1882 ml -50766 ml Intake Oral 420 ml 518 ml 4796 ml IV Total 1182 ml Output Urine Total 1750 ml 2400 ml 23527 ml # Bowel Movements 0 Additional Information: General appearance: No apparent distress, thin-appearing, pleasant, cooperative HEET: Normocephalic, atraumatic, no scleral icterus, mucous membranes moist Neck: Carotid murmur heard bilaterally. Cardiovascular: RRR with occasional premature beats, normal S1 and normal S2, systolic 3/6 murmur heard at left sternal border, diastolic 2/6 murmur heard at right sternal border, PMI nondisplaced, no JVD, bilateral 1+ sacral and LE edema. Pulses normal in all extremities. Respiratory: Fair aeration, coarse b/l Abdomen: Soft, nontender, nondistended, + bowel sounds Neuro: Alert, no facial droop, tongue midline, able to walk without any difficulty Psych: Appropriate affect Skin: No rashes on face, neck, and lower extremities Lab and Diagnostics Result Diagram: 02/17/17 0300 02/17/17 0300 Assessment & Plan Assessment #Acute systolic congestive heart failure: Pt presented with signs and symptoms of acute volume overload. Likely new onset CHF secondary to severe hypertension. CXR showed pleural effusions and pulmonary edema. Pt has not had prior workup or treatment as she avoided physicians for 7 years. She does not appear to be in decompensated heart failure at this time, so milrinone was discontinued. Her hypertension is fairly controlled on hydralazine, and SBP now remains mostly in 120s - 130s. Will continue afterload reduction with vasodilators. Her volume status continues to improve along with her symptoms. Lisinopril and chlorothiazide were discontinued due to developing GINA, which has begun to improve. - Continue hydralazine to 50 mg PO QID - Continue spironolactone 25 mg PO daily - Decrease furosemide given rise in BUN. Chest XR today. If unable to do PA/ lateral CXR, I will get BNP - Will add carvedilol or metoprolol XL prior to discharge once the patient is euvolemic - Nitro paste 1 inch - BMP and Mg daily - Stopped milrinone - Stopped lisinopril - Stopped chlorothiazide gtt #Hypertension: Her BP is more controlled but continues to fluctuate between 120- 130s. Goal BP <120/80. - Continue spironolactone - Continue hydralazine 50 mg PO QID - Frequent BP measurements #Acute kidney injury: Improving. Cr decreased from 1.36 to 1.23. Discontinued lisinopril and chlorothiazide. Will restart lisinopril when renal function has stabilized. - Stopped lisinopril - Stopped chlorothiazide gtt - Continue to monitor BMP #NSTEMI: EKG showed ST changes, but these may be due to LVH. Revisited the topic of heart catheterization but pt is hesitant to undergo any invasive procedures at this time, and wishes to have improvement in her orthopnea before discussing it further. - Nitroglycerin SL PRN - Continue ASA 81 mg PO daily - Discontinued Plavix #Frailty: Pt appears quite thin and reports severe weakness and inability to stand since being hospitalized. Recommend continuing physical therapy. - Continue PT Problems: (1) Acute systolic heart failure Status: Acute ICD Code: I50.21 (2) Non-ST elevation myocardial infarction (NSTEMI) Status: Acute ICD Code: I21.4 Pain Evaluation: Adequate Pain Control GI Prophylaxis: Not indicated VTE Prophylaxis: Sub-Q Heparin (Unfractionated) Resuscitation Status: DNR/DNI:Do Not Resuscitate/Intubate Attending Statement I saw, examined, and evaluated the patient with Dr. Dav Perdue on 2016 and agree with the note as above along with my edits. Dav Perdue February 17, 2017 08:39 Ger Nicole MD February 17, 2017 10:06
--- NOTE | 2017-02-17 10:45 | PCM.PNORTH ---
Subjective Date of Service: February 17, 2017 Visit Information: Reason for Visit Chf,Asf Surgery/Surgery Date Post-Op Day # Date of Admission: February 12, 2017 at 15:05 Hospital Day # Subjective Patient reports doing well, able to move her right knee more with less pain Objective Exam Objective CONST: WD,WN, NAD, A+OX3 OCULAR: EOMI, no conjunctivitis/icterus ENT: no deformities, scars or lesions CARDIAC: Pulse is regular. No cyanosis,clubbing,edema RESP: regular,unlabored MSK: normal light touch SPN/DPN/TN distributions. 5/5 DF/PF/Inv/Ev, 2+ DP Right KNEE - scars.-effusion - erythema - atrophy or asymmetry. TTP medial and laterally alignment- neutral, edema-moderate distally but within demarcated line ROM 0-80 active, 0-100 2/2 pain passive ext-flex + painful arc, - crepitus, - calf tenderness - instability on varus/valgus stress Signs Nadine's: - Reverse McMurrays: - Farshad: 1+ Drawer: 1+ Dial: - Leyla: - Apprehension:- J sign:- patella tilt: - Vital Signs and I/O Vital Sign - Last Date Time Temp Pulse Resp B/P Pulse Ox O2 Delivery O2 Flow Rate FiO2 02/17/17 08:03 36.9 73 18 135/53 97 Nasal Cannula 3.00 Intake and Output 02/16/17 02/16/17 02/17/17 Cumulative From/Thru 15:00 23:00 07:00 02/12/17 11:45 - 02/17/17 05:58 Intake Total 420 ml 518 ml 5978 ml Output Total 1750 ml 2400 ml 08529 ml Balance -1330 ml -1882 ml -71535 ml Intake Oral 420 ml 518 ml 4796 ml IV Total 1182 ml Output Urine Total 1750 ml 2400 ml 40416 ml # Bowel Movements 0 Lab & Micro Results Laboratory Tests Test 02/17/17 03:00 White Blood Count 5.3th/mm3 (3.8-10.1) Red Blood Count 3.24mil/mm3 (3.90-5.20) Hemoglobin 9.4g/dL (12.0-15.6) Hematocrit 30.1% (35.0-46.0) Mean Corpuscular Volume 92.9fL (81-100) Mean Corpuscular Hemoglobin 29.0pg (27.0-35.0) Mean Corpuscular Hemoglobin Concent 31.2% (32.0-37.0) Red Cell Distribution Width 14.9% (12.3-15.4) Platelet Count 227bil/L (150-400) Neutrophils (%) (Auto) 64.2% (40-74) Lymphocytes (%) (Auto) 14.5% (14-46) Monocytes (%) (Auto) 14.5% (4-12) Eosinophils (%) (Auto) 6.2% (0-5) Basophils (%) (Auto) 0.4% (0-3) Sodium Level 136mEq/L (134-144) Potassium Level 5.1mEq/L (3.5-5.2) Chloride Level 96mEq/L (97-108) Carbon Dioxide Level 27mmol/L (18-29) Blood Urea Nitrogen 29mg/dL (8-27) Creatinine 1.23mg/dL (0.57-1.00) Estimat Glomerular Filtration Rate 62mL/min (>59) Glucose Level 105mg/dL (60-99) Calcium Level 7.8mg/dL (8.5-10.1) Result Diagram: 02/17/1729902/17/17299 Additional Information Two-view x-ray of the right knee demonstrates depressed lateral plateau fracture Assessment & Plan Impression Right tibial plateau fracture Problems: (1) Acute systolic heart failure Status: Acute ICD Code: I50.21 (2) Non-ST elevation myocardial infarction (NSTEMI) Status: Acute ICD Code: I21.4 Plan NWB RLE pt not a surgical candidate given medical comorbidities and medical condition appreciate CT scan which shows Schatzker type 3 fracture with minimal depression of lateral plateau PT/OT for ROM crutches or walker for ambulation per PT assessment oral pain control continue medical management per primary pt can f/u as outpatient in ortho clinic with 2 view xrays right knee to assess bony healing recommend vit D/Ca supplementation recommend DEXA as outpatient to assess osteoporosis given low impact injury please call with questions VTE Prophylaxis: Sub-Q Heparin (Unfractionated) Resuscitation Status: DNR/DNI:Do Not Resuscitate/Intubate Farhat Gallardo MD February 17, 2017 10:45
--- NOTE | 2017-02-17 11:03 | NUR ---
2view CXR RN and PT attempt to get pt to wheelchair to get a 2 view CXR. Pt felt dizzy and nauseaous. BP 116/78. HR 110, Spo2 98. Pt refused to get to wheelchair. Dr Nicole notified.
--- NOTE | 2017-02-17 13:33 | PCM.PNMED ---
Subjective Date of Service February 17, 2017 Subjective Zenobia Marcos is a 71 year old woman who has a history of avoiding health care who presented to the [facility] ED with a complaint of shortness of breath for the last 2-3 weeks. Now under treatment for acute heart failure with reduced EF. Hospital day #6. Overnight: The patient had a bit of confusion overnight. Today: The patient states that her edema has improved significantly since yesterday. She is able to lay flat for a longer period of time. She denies any chest pain, fevers, chills, nausea. The remainder of ROS is negative except as noted above. Exam Vital Signs Vital Sign - Last Date Time Temp Pulse Resp B/P Pulse Ox O2 Delivery O2 Flow Rate FiO2 02/17/17 11:19 80 02/17/17 11:18 36.3 22 115/61 98 Nasal Cannula 3.00 Intake and Output 02/16/17 02/16/17 02/17/17 Cumulative From/Thru 15:00 23:00 07:00 02/12/17 11:45 - 02/17/17 05:58 Intake Total 420 ml 518 ml 5978 ml Output Total 1750 ml 2400 ml 71342 ml Balance -1330 ml -1882 ml -65385 ml Intake Oral 420 ml 518 ml 4796 ml IV Total 1182 ml Output Urine Total 1750 ml 2400 ml 85706 ml # Bowel Movements 0 Exam General: No acute distress, thin, frail elderly woman in a hospital bed. HEENT: Normocephalic, atraumatic. External ears without defect. Right cataract present, left pupil reactive to light. Anicteric sclerae, moist conjunctivae, and no lid lag. Oropharynx free of erythema and cobble stoning with moist mucosa. Neck: Supple with full range of motion. No jugular venous distension. No lymphadenopathy or thyromegaly. Cardiovascular: Irregular rhythm, normal rate with grade 2 out of 5 systolic murmur. Pulmonary: Clear to auscultation bilaterally, without any wheezes, rales, rhonchi. Normal respiratory effort with no use of accessory muscles. Abdomen: Bowel tones present. Soft, nontender, mildly distended. No hepatosplenomegaly or masses appreciated. Extremities: Pitting edema up to the thigh bilaterally, significantly improved from yesterday, with notable wrinkling of the legs. No clubbing. Upper extremity edema resolved. Skin: Normal temperature. Bilateral lower extremities with blanching erythema when elevated. Neurological: Cranial nerves grossly intact. Normal muscle strength, tone, and bulk. Reflexes, coordination, and sensory function within normal limits. Psychiatric: Normal mood and affect. Alert and oriented to person, place, and time. IVs and Medications Medications Reviewed: Medications were reviewed in detail Lab and Diagnostics Result Diagram: 02/17/17 0300 02/17/17 0300 X-Rays, CTs and MRIs X-RAY CHEST ONE VIEW, PORTABLE IMPRESSION: Bibasilar opacities obscure the diaphragms, most likely representing small to moderate sized bilateral pleural effusions with associated atelectasis. However, superimposed pneumonia or pulmonary edema cannot be excluded. Dictated by: King Corey M.D. on 02/12/2017 at 11:28 US VEINOUS LEG DUPLEX UNILATERAL, RIGHT IMPRESSION: No gross evidence of deep venous thrombosis. However, exam is considered suboptimal as patient could not tolerate compression. Dictated by: Karie Wiley M.D. on 02/13/2017 at 16:46 US DUPLEX DOPPLER UNILATERAL LEG ARTERIES, RIGHT IMPRESSION: No hemodynamic significant stenosis in the right lower extremity arteries. Dictated by: Pepe Escalante M.D. on 02/15/2017 at 10:00 CT KNEE RIGHT W/O CONTRAST IMPRESSION: Mildly depressed fracture involving the posterior margin of the lateral tibial plateau (Schatzker IIIA) Dictated by: Chante Pagan MD, PhD on 02/14/2017 at 19:32 Cardiac Echo Impressions Interpretation Summary The left ventricle is moderate-severely dilated. There is moderate concentric left ventricular hypertrophy. Left ventricular systolic function is moderate to severely reduced. The ejection fraction is estimated to be 30-35%. There is moderate to severe global hypokinesis of the left ventricle. The right ventricle is normal in size and function. The right ventricular systolic pressure is estimated at 63 mmHg assuming a right atrial pressure of 15 mm Hg. The left atrium is severely dilated. The right atrium is mild to moderately dilated. There is moderate mitral regurgitation. There is mild aortic valve sclerosis. There is moderate aortic regurgitation. There is mild to moderate tricuspid regurgitation. The aortic Sinus(es) of Valsalva are moderately dilated. The ascending aorta is moderately enlarged. There is a small pericardial effusion noted. There are no echocardiographic or Doppler indications for cardiac tamponade. There are moderately large-sized bilateral pleural effusions noted. Assessment & Plan Zenobia Marcos is a 71 year old woman who has a history of avoiding health care who presented to the [facility] ED with a complaint of shortness of breath for the last 2-3 weeks. Now under treatment for acute heart failure with reduced EF. Hospital day #6. Acute heart failure with reduced EF, present on admission, active, improving -ECHO reveals an EF of 30% -Cardiology consulted, will follow recommendations -IV heparin and Nitroglycerin drip stopped. -ASA, statin, Lasix per cardiology. -Considering initiation of beta-skyler prior to discharge -2 L fluid restriction, low sodium diet, CHF education -Patient was given an infusion of chlorothiazide which resulted in notable diuresis. Hold off at this time and allow her body compartments to re- equilibrate. -Consider transition to by mouth diuretics for the next couple of days. Patient would also likely benefit from spironolactone given her low EF. Acute kidney injury secondary to prerenal azotemia, not present on admission, improved -Stop lisinopril -Continue to monitor Elevated troponin secondary to CHF exacerbation, present on admission, active -As above, although troponin level remained stable without a peak more suggestive of chronic stress -Regardless, patient declines invasive treatment options, requesting medical management only. Mildly depressed fracture of the lateral tibial plateau, present on admission, ongoing. -Pain management currently achieved with when necessary Percocet -Orthopedic surgery contacted. Appreciate time and expertise. -Orthopedic recommendations include physical therapy, crutches/walker, outpatient follow-up with a 2 view x-ray, vitamin D/calcium supplementation, outpatient DEXA scan. Hyperlipidemia: - Statin therapy as noted above Hyperglycemia -A1C normal Hypertension -As above -Currently borderline normotensive since the initiation of Milrinone CODE STATUS: DO NOT RESUSCITATE/DO NOT INTUBATE Disposition: Anticipate patient will be in the hospital for 1-2 more days as she is evaluated and treated for the above conditions. GI Prophylaxis: Not indicated VTE Prophylaxis: Sub-Q Heparin (Unfractionated) Resuscitation Status: DNR/DNI:Do Not Resuscitate/Intubate Attending Statement I interviewed and examined the patient on rounds today. I agree with the assessment and plan as stated above. Tamanna Mai DO February 17, 2017 13:27 Kobi Stark MD February 17, 2017 15:51
--- NOTE | 2017-02-17 14:37 | NUR ---
Social Work-continued d/c planning: Data:EMR Reviewed. Pt is on day 5 of hospitalization for CHF per H&P. Pt is not medically stable anticipate several days. PT has been working with pt and they are recommending SNF placement. SW discussed recommendation with pt of SNF. SW explained benefits of going to SNF, pt states she would like to think about her options prior to SW making a referral. SW provided pt with SNF choice list and informed pt that SW would follow up tomorrow. Pt would [facility] to await MD order. Paperwork and PASRR in the chart. SW will continue to follow. Assessment:Pt who would benefit from SNF. Plan:SNF choice list provided-SW to follow up with pt again tomorrow regarding SNF placement, pt states she would like to think about this. Paperwork and PASRR in the chart. SW will continue to follow. YASSINE Berman Addendum: 02/17/17 at 1450 by REBEKAH ROSALES MD order obtained for SNF placement. YASSINE Berman
--- NOTE | 2017-02-17 14:55 | NUR ---
SNF choice list provided. YASSINE Berman
[2017-02-18] VITALS (13 sets, daily range): BP systolic 100–140; BP diastolic 55–83; PULSE 79–100; RESP 17–26; O2SAT 96–100
[2017-02-18] MEDS: Heparin 5,000 Unit/mL Inj SUBQ SCH ×3 (01:21→15:34)
[2017-02-18] MEDS: oxyCODONE-Acetamin 5-325 mg Tablet PO PRN ×5 (01:32→20:30)
[2017-02-18 03:38] LABS: BASOPHILS % (AUTO) 0.3 % (0-3); EOSINOPHILS % (AUTO) 3.1 % (0-5); MONOCYTES % (AUTO) 11.1 % (4-12); Mean Corpuscular Hemoglobin 29.5 pg (27.0-35.0); Mean Corpuscular Volume 89.7 fL (81-100); NEUTROPHILS % (AUTO) 74.7 % (40-74); Platelet Count 227 bil/L (150-400)
--- NOTE | 2017-02-18 04:14 | NUR ---
P: keep SBP < 130 I: hydralazine PO scheduled and PRN E: Drowsy, oriented, anxious. Pt refusing HS hydralazine and lipitor. "I will choke". Later more awake and c/o R hip/leg pain 06/06 w/ repositioning. Percocet along w/ hydralazine and lipitor given w/ apple sauce at 0130. SBP was in the 140-150s now down to 120s. 2nd percocet given for R hip pain, 02/03. Now sleeping quietly. Tele SR w/ PVCs. Good UOP via chavez, light [place]. 1-2L NC sats in the high 90s. Denies dyspnea but states oxygen helpful. Denies N/V.
[2017-02-18] MEDS: DEXTROSE 5% IV SCH ×2 (06:46→17:58)
[2017-02-18] MEDS: MILRINONE IV SCH ×2 (06:46→17:58)
--- NOTE | 2017-02-18 07:37 | NUR ---
Flipped T waves noted approx noon on 02/17..
--- NOTE | 2017-02-18 10:54 | NUR ---
Social Work: Continued Discharge Planning D: Pt discussed in am rounds. PT recommendation is for Skilled Rehab; MD orders for case management to arrange for SNF as pt has fibula fracture with decreased mobility. CLINICAL QUALITY ANALYST met with patient at bedside. Sw role explained and MD recommendation for SNF reviewed with pt. SNF CHOICE LIST PROVIDED to patient. Pt preference is for [facility] as a second option. CLINICAL QUALITY ANALYST spoke with [facility] who will provide referrals and access to these facilities. PPW on chart PASSR completed A: Pt who will require SNF as pt is not ambulating due to tibula fracture. P: Anticipate pt to discharge to skilled rehab pending acceptance. CLINICAL QUALITY ANALYST to continue to follow. YASSINE David
--- NOTE | 2017-02-18 11:04 | NUR ---
Gave access and faxed facesheet to [facility] and [facility] per OFFICE MACHINE REPAIR SHOP SUPERVISOR Addendum: 02/18/17 at 1338 by GIANFRANCO PORTILLO [facility] with to follow [facility] is reviewing and having ED look at this referral as well. Concerned with LTC planning and secondary payor. Updated OFFICE MACHINE REPAIR SHOP SUPERVISOR
--- NOTE | 2017-02-18 11:48 | PCM.PNCARD ---
Subjective Date of service February 18, 2017 Chief Complaint Progressive shortness of breath History of Present Illness 71yoF with no past medical hx who had avoided healthcare for 7 years presents with progressive shortness of breath for 2-3 weeks prior to admission. She initially complained of shortness of breath on exertion, orthopnea, and PND with bilateral lower extremity edema. She has complained of mild chest discomfort, described as a band-like tightness around her chest for the past 2- 3 weeks. EKG showed LVH pattern with ST changes. Troponins were elevated on admission. CXR showed bilateral pleural effusions and pulmonary edema. Echo showed EF of 30-35% with global LV hypokinesis. She has been diuresed with Lasix and spironolactone. Yesterday, she was unable to stand or transfer to a wheelchair for a CXR, due to dizziness, nausea, leg pain, and weakness. Overnight she was drowsy but oriented, and refusing medications for several hours. PROBLEM LIST: #Acute systolic CHF exacerbation (EF 30% on echo 02/12/17) #NSTEMI #Hypertension #Hyperlipidemia Exam Vital Signs Vital Sign - Last Date Time Temp Pulse Resp B/P Pulse Ox O2 Delivery O2 Flow Rate FiO2 02/18/17 08:00 Supplement Oxygen 02/18/17 07:40 36.7 93 20 137/64 100 2.00 Intake and Output 02/17/17 02/17/17 02/18/17 Cumulative From/Thru 15:00 23:00 07:00 02/12/17 11:45 - 02/18/17 04:07 Intake Total 920 ml 400 ml 7298 ml Output Total 3850 ml 1550 ml 91611 ml Balance -2930 ml -1150 ml -88768 ml Intake Oral 920 ml 400 ml 6116 ml IV Total 1182 ml Output Urine Total 3850 ml 1550 ml 72805 ml # Bowel Movements 0 0 0 Additional Information: General appearance: No apparent distress, thin-appearing, pleasant, cooperative HEET: Normocephalic, atraumatic, no scleral icterus, mucous membranes moist Neck: Carotid murmur heard bilaterally. Cardiovascular: RRR with occasional premature beats, normal S1 and normal S2, systolic 3/6 murmur heard at left sternal border, diastolic 2/6 murmur heard at right sternal border, PMI nondisplaced, no JVD, bilateral 1+ sacral and LE edema. Pulses normal in all extremities. Respiratory: Fair aeration, coarse b/l Abdomen: Soft, nontender, nondistended, + bowel sounds Neuro: Alert, no facial droop, tongue midline. Psych: Appropriate affect Skin: No rashes on face, neck, and lower extremities Lab and Diagnostics Result Diagram: 02/18/17 0324 02/18/17 0324 Assessment & Plan Assessment #Acute systolic congestive heart failure: Pt presented with signs and symptoms of acute volume overload. Likely new onset CHF secondary to severe hypertension. CXR showed pleural effusions and pulmonary edema. Pt has not had prior workup or treatment as she avoided physicians for 7 years. She does not appear to be in decompensated heart failure at this time, so milrinone was discontinued. Her hypertension is fairly controlled on hydralazine, and SBP now remains mostly in 120s - 130s. Her volume status continues to improve along with her symptoms but her CXR 02/18/2017 shows persistent bilateral pleural effusions (although improving). Her GINA has begun to resolve, so we will restart the lisinopril tomorrow after starting carvedilol. Before discharge, she should be weaned off O2, restarted on lisinopril, and started on carvedilol. Plan: - Will restart lisinopril tomorrow - Continue hydralazine 50 mg PO QID - Continue spironolactone 25 mg PO daily - Start carvedilol 3.125 mg BID - Will give furosemide 40mg IV X1 today and redose tomorrow depending on response. - Nitro paste 1 inch - BMP and Mg daily - Stopped milrinone - Stopped chlorothiazide gtt - Ordered BNP #Hypertension: Her BP is more controlled but continues to fluctuate between 120- 130s. Goal BP <120/80. - Will restart lisinopril tomorrow - Carvedilol 3.125 mg BID started - Continue hydralazine 50 mg PO QID - Continue spironolactone - Frequent BP measurements #Acute kidney injury: Resolving. Cr decreased from 1.23 to 1.09. Will restart lisinopril tomorrow if kidney function continues to stabilize. - Will restart lisinopril tomorrow. - Stopped chlorothiazide gtt - Continue to monitor BMP #NSTEMI: EKG showed ST changes, but these may be due to LVH. Revisited the topic of heart catheterization but pt is hesitant to undergo any invasive procedures at this time, and wishes to have improvement in her orthopnea before discussing it further. - Nitroglycerin SL PRN - Continue ASA 81 mg PO daily - Discontinued Plavix #Frailty: Pt appears quite thin and reports severe weakness and inability to stand since being hospitalized, as well as her right tibial fracture. Recommend continuing physical therapy. - Continue PT Problems: (1) Acute systolic heart failure Status: Acute ICD Code: I50.21 (2) Non-ST elevation myocardial infarction (NSTEMI) Status: Acute ICD Code: I21.4 Pain Evaluation: Adequate Pain Control GI Prophylaxis: Not indicated VTE Prophylaxis: Sub-Q Heparin (Unfractionated) Resuscitation Status: DNR/DNI:Do Not Resuscitate/Intubate Attending Statement I saw, examined, and evaluated the patient with Dr. Dav Perdue on 2016 and agree with the note as above along with my edits. Dav Perdue February 18, 2017 10:00 Ger Nicole MD February 18, 2017 13:30
[2017-02-18] MEDS ORDERED: Ergocalciferol (Vit D2) 50,000 Unit Capsule PO ONE (11:55)
--- NOTE | 2017-02-18 11:56 | PCM.PNMED ---
Subjective Date of Service February 18, 2017 Subjective Zenobia Marcos is a 71 year old woman who has a history of avoiding health care who presented to the [facility] ED with a complaint of shortness of breath for the last 2-3 weeks. Now under treatment for acute heart failure with reduced EF. Hospital day #7. Overnight: No acute events. Today: The patient states that her edema has almost resolved. She denies any chest pain, fevers, chills, nausea. She still complains of pain in her leg and inability to walk on it. The remainder of ROS is negative except as noted above. Exam Vital Signs Vital Sign - Last Date Time Temp Pulse Resp B/P Pulse Ox O2 Delivery O2 Flow Rate FiO2 02/18/17 08:00 Supplement Oxygen 02/18/17 07:40 36.7 93 20 137/64 100 2.00 Intake and Output 02/17/17 02/17/17 02/18/17 Cumulative From/Thru 15:00 23:00 07:00 02/12/17 11:45 - 02/18/17 04:07 Intake Total 920 ml 400 ml 7298 ml Output Total 3850 ml 1550 ml 93086 ml Balance -2930 ml -1150 ml -87065 ml Intake Oral 920 ml 400 ml 6116 ml IV Total 1182 ml Output Urine Total 3850 ml 1550 ml 44692 ml # Bowel Movements 0 0 0 Exam General: No acute distress, thin, frail elderly woman in a hospital bed. HEENT: Normocephalic, atraumatic. External ears without defect. Right cataract present, left pupil reactive to light. Anicteric sclerae, moist conjunctivae, and no lid lag. Oropharynx free of erythema and cobble stoning with moist mucosa. Neck: Supple with full range of motion. No jugular venous distension. No lymphadenopathy or thyromegaly. Cardiovascular: Irregular rhythm, normal rate with grade 2 out of 5 systolic murmur. Pulmonary: Clear to auscultation bilaterally, without any wheezes, rales, rhonchi. Normal respiratory effort with no use of accessory muscles. Abdomen: Bowel tones present. Soft, nontender, mildly distended. No hepatosplenomegaly or masses appreciated. Extremities: Notable wrinkling of the legs. Edema almost completely resolved. No clubbing. Upper extremity edema resolved. Moderate swelling of her right knee. Skin: Normal temperature. Bilateral lower extremities with blanching erythema when elevated. Neurological: Cranial nerves grossly intact. Normal muscle strength, tone, and bulk. Reflexes, coordination, and sensory function within normal limits. Psychiatric: Normal mood and affect. Alert and oriented to person, place, and time. IVs and Medications Medications Reviewed: Medications were reviewed in detail Lab and Diagnostics Result Diagram: 02/18/17 0324 02/18/17 0324 X-Rays, CTs and MRIs X-RAY CHEST ONE VIEW, PORTABLE IMPRESSION: Bibasilar opacities obscure the diaphragms, most likely representing small to moderate sized bilateral pleural effusions with associated atelectasis. However, superimposed pneumonia or pulmonary edema cannot be excluded. Dictated by: King Corey M.D. on 02/12/2017 at 11:28 US VEINOUS LEG DUPLEX UNILATERAL, RIGHT IMPRESSION: No gross evidence of deep venous thrombosis. However, exam is considered suboptimal as patient could not tolerate compression. Dictated by: Karie Wiley M.D. on 02/13/2017 at 16:46 US DUPLEX DOPPLER UNILATERAL LEG ARTERIES, RIGHT IMPRESSION: No hemodynamic significant stenosis in the right lower extremity arteries. Dictated by: Pepe Escalante M.D. on 02/15/2017 at 10:00 CT KNEE RIGHT W/O CONTRAST IMPRESSION: Mildly depressed fracture involving the posterior margin of the lateral tibial plateau (Schatzker IIIA) Dictated by: Chante Pagan MD, PhD on 02/14/2017 at 19:32 Cardiac Echo Impressions Interpretation Summary The left ventricle is moderate-severely dilated. There is moderate concentric left ventricular hypertrophy. Left ventricular systolic function is moderate to severely reduced. The ejection fraction is estimated to be 30-35%. There is moderate to severe global hypokinesis of the left ventricle. The right ventricle is normal in size and function. The right ventricular systolic pressure is estimated at 63 mmHg assuming a right atrial pressure of 15 mm Hg. The left atrium is severely dilated. The right atrium is mild to moderately dilated. There is moderate mitral regurgitation. There is mild aortic valve sclerosis. There is moderate aortic regurgitation. There is mild to moderate tricuspid regurgitation. The aortic Sinus(es) of Valsalva are moderately dilated. The ascending aorta is moderately enlarged. There is a small pericardial effusion noted. There are no echocardiographic or Doppler indications for cardiac tamponade. There are moderately large-sized bilateral pleural effusions noted. Assessment & Plan Zenobia Marcos is a 71 year old woman who has a history of avoiding health care who presented to the [facility] ED with a complaint of shortness of breath for the last 2-3 weeks. Now under treatment for acute heart failure with reduced EF. Hospital day #7. Acute heart failure with reduced EF, present on admission, active, improving -ECHO reveals an EF of 30% -Now down by almost 18 L -Cardiology consulted, will follow recommendations -IV heparin and Nitroglycerin drip stopped. -ASA, statin, Lasix per cardiology. -Considering initiation of beta-skyler and restarting ACEi prior to discharge. Will defer to cardiology. -2 L fluid restriction, low sodium diet, CHF education -Consider transition to by mouth diuretics for the next couple of days. Acute kidney injury secondary to prerenal azotemia, not present on admission, resolved -Restarted lisinopril per cardiology -Continue to monitor Elevated troponin secondary to CHF exacerbation, present on admission, active -As above, although troponin level remained stable without a peak more suggestive of chronic stress -Regardless, patient declines invasive treatment options, requesting medical management only. Mildly depressed fracture of the lateral tibial plateau, present on admission, ongoing. -Pain management currently achieved with when necessary Percocet -Orthopedic surgery contacted. Appreciate time and expertise. -Orthopedic recommendations include physical therapy, crutches/walker, outpatient follow-up with a 2 view x-ray, vitamin D/calcium supplementation, outpatient DEXA scan. Hyperlipidemia: - Statin therapy as noted above Hyperglycemia -A1C normal Hypertension -As above CODE STATUS: DO NOT RESUSCITATE/DO NOT INTUBATE Disposition: Anticipate patient will be in the hospital for 1-2 more days as she is evaluated and treated for the above conditions. She would need to be discharged to a SNF to regain mobility with her fracture and for daily physical therapy. GI Prophylaxis: Not indicated VTE Prophylaxis: Sub-Q Heparin (Unfractionated) Resuscitation Status: DNR/DNI:Do Not Resuscitate/Intubate Time spent 35 minutes Attending Statement I interviewed and examined the patient on rounds today. I agree with the assessment and plan as stated above. Tamanna Mai DO February 18, 2017 11:47 Kobi Stark MD February 19, 2017 14:35
[2017-02-18] MEDS: Calcium Carbonate (Oyster Shell) 500 mg Tablet PO SCH (12:50)
[2017-02-18] MEDS ORDERED: Furosemide 10 mg/mL 4 mL Inj IVPUSH ONE (13:30)
--- NOTE | 2017-02-18 13:45 | DRSVH ---
PROCEDURE: X-RAY CHEST, TWO VIEWS ([id number]) INDICATIONS: dyspnea TECHNIQUE: 2 views of the chest were acquired. COMPARISON: [facility], CR, XR CHEST 1VW (PORTABLE), 02/12/2017, 11:51. FINDINGS: Surgical changes and devices: None. Lungs and pleura: Bibasilar pleural effusions and airspace opacities redemonstrated similar to prior examination. Lungs are clear. Mediastinum: Mediastinal contours are normal. Heart size is normal. Bones and chest wall: No suspicious bony abnormalities. Soft tissues appear unremarkable. IMPRESSION: Bibasilar atelectasis versus aspiration or pneumonia not significantly changed. Continued radiograph ic surveillance to resolution is recommended. Persistent small effusions. Dictated by: Peter Lindsey RRA Interpreted: Chante Pagan MD on 02/18/2017 at 13:43 Transcribed by: LEVON on 02/18/2017 at 13:45 Approved by: Chante Pagan MD, PhD on 02/18/2017 at 15:23
--- NOTE | 2017-02-18 18:19 | NUR ---
Diuresis/Activity.. has been able to transition to room air and spo2 remains stable. Has been diuresing will since Lasix dose. Will D/C chavez per orders. Has been up in the chair and was able to go to xray for chest xray this am via w/chair.
--- NOTE | 2017-02-18 22:32 | NUR ---
TRANSFER Pt transferred from room 2017 to 2024, no pain, SR per tele, VSS.
--- NOTE | 2017-02-18 22:53 | NUR ---
Hydralazine not given at HS, pt's blood pressure was 105/55. Pain medication also given. Pt transferred to room 2024, report given to Vicenta Hamm rn.
[2017-02-19] VITALS (7 sets, daily range): BP systolic 91–132; BP diastolic 55–76; PULSE 84–108; RESP 16–18; O2SAT 93–97
[2017-02-19] MEDS: Heparin 5,000 Unit/mL Inj SUBQ SCH ×3 (00:40→16:58)
[2017-02-19] MEDS: MILRINONE IV SCH (00:40)
[2017-02-19] MEDS: DEXTROSE 5% IV SCH (00:40)
--- NOTE | 2017-02-19 04:20 | NUR ---
CHAVEZ/AMBULATION Pt's chavez removed with 1700 output in chavez. Pt very weak and unsteady on feet to BSC. Pt voided 100cc and had a large BM post chavez removal.
--- NOTE | 2017-02-19 08:50 | PCM.PNORTH ---
Subjective Date of Service: February 19, 2017 Visit Information: Reason for Visit Chf,Asf Surgery/Surgery Date Post-Op Day # Date of Admission: February 12, 2017 at 15:05 Hospital Day # Subjective Plan patient awake and alert and sitting up at the bedside. No complaints of pain at this time. Patient indicates she is no longer using a walker or crutches for ambulation and I have cautioned her regarding this secondary to the right lateral tibial plateau posterior aspect depression fracture she has suffered. Patient appears in good spirits and appears much better than the last I saw her. I discussed with her anticipated discharge to skilled facility soon for additional physical therapy and rehabilitation. I will also mentioned to her that she will see us in our office approximately one week after discharge for follow-up. Postop General: No Complaints, No Shortness of Breath, No Chest Pain, Good Appetite Pain Management: PO Objective Exam Objective Alert and oriented 3 and pleasant. Nontender to palpation about the area of her fracture. Calf is soft and nontender. Right thigh remains swollen secondary to fluid issues attenuated to her other diagnoses. Toe wiggle and sensation are intact at right lower extremity distally. No active gait the patient is able to stand briefly at bedside with physical therapy. Vital Signs and I/O Vital Sign - Last Date Time Temp Pulse Resp B/P Pulse Ox O2 Delivery O2 Flow Rate FiO2 02/19/17 05:16 90 02/19/17 04:23 36.5 18 132/76 93 Room Air 02/18/17 07:40 2.00 Intake and Output 02/18/17 02/18/17 02/19/17 Cumulative From/Thru 15:00 23:00 07:00 02/12/17 11:45 - 02/19/17 05:50 Intake Total 390 ml 7688 ml Output Total 2500 ml 26678 ml Balance -2110 ml -78327 ml Intake Oral 390 ml 6506 ml IV Total 1182 ml Output Urine Total 2500 ml 34876 ml # Bowel Movements 0 Result Diagram: 02/18/17 0324 02/18/17 0324 General Appearance: Alert, Oriented X3, Cooperative, No Acute Distress Extremities: No Compartment Syndrom Noted, Thigh & Calf Soft/Nontender Postop Sensory Motor: Distal Motor Intact, Movement in Toes, Distal Sensation Intact Activity: Activity per PT, Ambulate with PT (nonweightbearing on the right lower extremity using a front wheeled walker) Catheters: None Assessment & Plan Problems: (1) Acute systolic heart failure Status: Acute ICD Code: I50.21 (2) Non-ST elevation myocardial infarction (NSTEMI) Status: Acute ICD Code: I21.4 Plan Post admission day #7 from cardiac condition with right tibial plateau fracture diagnosed at time of admit. Patient is followed by Dr. Farhat Gallardo from orthopedics. Patient is not a surgical candidate secondary to her other medical comorbidities conditions. Continue nonweightbearing at the right lower extremity using a walker with physical therapy. Continue formal physical and occupational therapy for mobility, safety in gait. Continue by mouth pain control as needed for fracture Follow-up with orthopedics 1 week post discharge with right two-view knee x- rays on arrival. Recommend vitamin D/Ca supplementation. Recommend DEXA as outpatient to assess osteoporosis given low impact injury. From orthopedic standpoint patient is cleared to discharge when ready per hospitalist service. Orthopedics will follow an office post discharge. Anticipate discharge to custodial facility by hospitalist service when patient is medically stable to do so. VTE Prophylaxis: Sub-Q Heparin (Unfractionated) Resuscitation Status: DNR/DNI:Do Not Resuscitate/Intubate Zander Vaca PA-C February 19, 2017 08:50
[2017-02-19] MEDS: Calcium Carbonate (Oyster Shell) 500 mg Tablet PO SCH (09:06)
[2017-02-19] MEDS: oxyCODONE-Acetamin 5-325 mg Tablet PO PRN ×3 (09:06→14:54)
--- NOTE | 2017-02-19 09:41 | PCM.PNCARD ---
Subjective Date of service February 19, 2017 Chief Complaint Progressive shortness of breath History of Present Illness 71yoF with no past medical hx who had avoided healthcare for 7 years presents with progressive shortness of breath for 2-3 weeks prior to admission. She initially complained of shortness of breath on exertion, orthopnea, and PND with bilateral lower extremity edema. She has complained of mild chest discomfort, described as a band-like tightness around her chest for the past 2- 3 weeks. EKG showed LVH pattern with ST changes. Troponins were elevated on admission. CXR showed bilateral pleural effusions and pulmonary edema. Echo showed EF of 30-35% with global LV hypokinesis. She has been diuresed with Lasix and spironolactone. Subjective: Her BP was 105/55 overnight and her evening hydralazine was held. She has since been weaned off oxygen and her Garsia was removed. She has been tolerating room air well and has been more active and able to transfer to the bedside commode without much fatigue or dyspnea. She still reports some orthopnea and states she still cannot sleep flat on her back like she used to. She denies chest pain , palpitations, worsening edema, syncope. PROBLEM LIST: #Acute systolic CHF exacerbation (EF 30% on echo 02/12/17) #NSTEMI #Hypertension #Hyperlipidemia Exam Vital Signs Vital Sign - Last Date Time Temp Pulse Resp B/P Pulse Ox O2 Delivery O2 Flow Rate FiO2 02/19/17 08:57 37.2 108 16 101/59 97 Room Air 02/18/17 07:40 2.00 Intake and Output 02/18/17 02/18/17 02/19/17 Cumulative From/Thru 15:00 23:00 07:00 02/12/17 11:45 - 02/19/17 05:50 Intake Total 390 ml 7688 ml Output Total 2500 ml 37355 ml Balance -2110 ml -07119 ml Intake Oral 390 ml 6506 ml IV Total 1182 ml Output Urine Total 2500 ml 84717 ml # Bowel Movements 0 Additional Information: General appearance: No apparent distress, thin-appearing, pleasant, cooperative HEET: Normocephalic, atraumatic, no scleral icterus, mucous membranes moist Neck: No JVD. Carotid murmur heard bilaterally. Cardiovascular: RRR, normal S1 and normal S2, systolic 4/6 murmur heard at left sternal border, diastolic 2/6 murmur heard at right sternal border, PMI nondisplaced, bilateral minimal lower extremity edema, significantly improved from admission. Pulses normal in all extremities. Respiratory: Crackles at bilateral bases Abdomen: Soft, nontender, nondistended, + bowel sounds Neuro: Alert, no facial droop, tongue midline Psych: Appropriate affect Skin: No rashes on face, neck, and lower extremities Lab and Diagnostics Result Diagram: 02/18/17 0324 02/18/17 0324 Assessment & Plan Assessment #Acute systolic congestive heart failure: Pt presented with signs and symptoms of acute volume overload. Likely new onset CHF secondary to severe hypertension. CXR showed pleural effusions and pulmonary edema. Pt has not had prior workup or treatment as she avoided physicians for 7 years. She was not in low output heart failure at this time, so milrinone was discontinued. Her hypertension is fairly controlled on hydralazine, and SBP now remains mostly in 120s - 130s. Her volume status continues to improve along with her symptoms but she continues to have hypervolemia on CXR done 02/18/2017. Her GINA has nearly resolved, so we start losartan. Her fluid status is steadily improving, but she is still fluid overloaded today. Will continue daily IV furosemide for now. - Start Losartan 50 mg BID. If low BP, we can decrease the dose. - Discontinue hydralazine - Continue furosemide 40 mg IV daily and can switch to PO 40mg daily tomorrow - Continue spironolactone 25 mg PO daily - Continue carvedilol 3.125 mg BID - BMP and Mg daily - Stopped milrinone - Stopped chlorothiazide gtt #Hypertension: Her BP is more controlled but continues to fluctuate between 120- 130s. Goal BP <120/80. - Meds as above #Acute kidney injury: Resolving. Continue to monitor #NSTEMI: EKG showed ST changes, but these may be due to LVH. Revisited the topic of heart catheterization but pt is hesitant to undergo any invasive procedures at this time, and wishes to have improvement in her orthopnea before discussing it further. - Nitroglycerin SL PRN - Continue ASA 81 mg PO daily - Discontinued Plavix - Continue atorvastatin 40mg qhs #Frailty: Pt appears quite thin and reports severe weakness and inability to stand since being hospitalized, as well as her right tibial fracture. Recommend continuing physical therapy. - Continue PT Problems: (1) Acute systolic heart failure Status: Acute ICD Code: I50.21 (2) Non-ST elevation myocardial infarction (NSTEMI) Status: Acute ICD Code: I21.4 Pain Evaluation: Adequate Pain Control GI Prophylaxis: Not indicated VTE Prophylaxis: Sub-Q Heparin (Unfractionated) Resuscitation Status: DNR/DNI:Do Not Resuscitate/Intubate Attending Statement I saw, examined, and evaluated the patient with Dr. Dav Perdue on 2016 and agree with the note as above along with my edits Dav Perdue February 19, 2017 09:41 Ger Nicole MD February 19, 2017 11:51 Resuscitation Status: DNR/DNI:Do Not Resuscitate/Intubate Dav Perdue February 19, 2017 09:41 Dav Perdue February 19, 2017 09:41
[2017-02-19] MEDS: Furosemide 10 mg/mL 4 mL Inj IVPUSH SCH (10:59)
--- NOTE | 2017-02-19 14:03 | PCM.PNMED ---
Subjective Date of Service February 19, 2017 Subjective Zenobia Marcos is a 71 year old woman who has a history of avoiding health care who presented to the [facility] ED with a complaint of shortness of breath for the last 2-3 weeks. Now under treatment for acute heart failure with reduced EF. Hospital day #8. Overnight: No acute events. Today: The patient was able to mobilize better with physical therapy. Her breathing is improved. She denies any chest pain, fevers, chills, nausea. The remainder of ROS is negative except as noted above. Exam Vital Signs Vital Sign - Last Date Time Temp Pulse Resp B/P Pulse Ox O2 Delivery O2 Flow Rate FiO2 02/19/17 11:26 36.6 91 16 91/56 95 Room Air 02/18/17 07:40 2.00 Intake and Output 02/18/17 02/18/17 02/19/17 Cumulative From/Thru 15:00 23:00 07:00 02/12/17 11:45 - 02/19/17 05:50 Intake Total 390 ml 7688 ml Output Total 2500 ml 01698 ml Balance -2110 ml -69027 ml Intake Oral 390 ml 6506 ml IV Total 1182 ml Output Urine Total 2500 ml 72195 ml # Bowel Movements 0 Exam General: No acute distress, thin, frail elderly woman sitting up in a chair. HEENT: Normocephalic, atraumatic. External ears without defect. Right cataract present, left pupil reactive to light. Anicteric sclerae, moist conjunctivae, and no lid lag. Oropharynx free of erythema and cobble stoning with moist mucosa. Neck: Supple with full range of motion. No jugular venous distension. No lymphadenopathy or thyromegaly. Cardiovascular: Irregular rhythm, normal rate with grade 2 out of 5 systolic murmur. Pulmonary: Clear to auscultation bilaterally, without any wheezes, rales, rhonchi. Normal respiratory effort with no use of accessory muscles. Abdomen: Bowel tones present. Soft, nontender, mildly distended. No hepatosplenomegaly or masses appreciated. Extremities: Notable wrinkling of the legs. Edema almost completely resolved. No clubbing. Upper extremity edema resolved. Moderate swelling of her right knee. Skin: Normal temperature. Bilateral lower extremities with blanching erythema when elevated. Neurological: Cranial nerves grossly intact. Normal muscle strength, tone, and bulk. Reflexes, coordination, and sensory function within normal limits. Psychiatric: Normal mood and affect. Alert and oriented to person, place, and time. IVs and Medications Medications Reviewed: Medications were reviewed in detail Lab and Diagnostics Result Diagram: 02/18/17 0324 02/19/17 0845 X-Rays, CTs and MRIs X-RAY CHEST ONE VIEW, PORTABLE IMPRESSION: Bibasilar opacities obscure the diaphragms, most likely representing small to moderate sized bilateral pleural effusions with associated atelectasis. However, superimposed pneumonia or pulmonary edema cannot be excluded. Dictated by: King Corey M.D. on 02/12/2017 at 11:28 US VEINOUS LEG DUPLEX UNILATERAL, RIGHT IMPRESSION: No gross evidence of deep venous thrombosis. However, exam is considered suboptimal as patient could not tolerate compression. Dictated by: Karie Wiley M.D. on 02/13/2017 at 16:46 US DUPLEX DOPPLER UNILATERAL LEG ARTERIES, RIGHT IMPRESSION: No hemodynamic significant stenosis in the right lower extremity arteries. Dictated by: Pepe Escalante M.D. on 02/15/2017 at 10:00 CT KNEE RIGHT W/O CONTRAST IMPRESSION: Mildly depressed fracture involving the posterior margin of the lateral tibial plateau (Schatzker IIIA) Dictated by: Chante Pagan MD, PhD on 02/14/2017 at 19:32 Cardiac Echo Impressions Interpretation Summary The left ventricle is moderate-severely dilated. There is moderate concentric left ventricular hypertrophy. Left ventricular systolic function is moderate to severely reduced. The ejection fraction is estimated to be 30-35%. There is moderate to severe global hypokinesis of the left ventricle. The right ventricle is normal in size and function. The right ventricular systolic pressure is estimated at 63 mmHg assuming a right atrial pressure of 15 mm Hg. The left atrium is severely dilated. The right atrium is mild to moderately dilated. There is moderate mitral regurgitation. There is mild aortic valve sclerosis. There is moderate aortic regurgitation. There is mild to moderate tricuspid regurgitation. The aortic Sinus(es) of Valsalva are moderately dilated. The ascending aorta is moderately enlarged. There is a small pericardial effusion noted. There are no echocardiographic or Doppler indications for cardiac tamponade. There are moderately large-sized bilateral pleural effusions noted. Assessment & Plan Zenobia Marcos is a 71 year old woman who has a history of avoiding health care who presented to the [facility] ED with a complaint of shortness of breath for the last 2-3 weeks. Now under treatment for acute heart failure with reduced EF. Hospital day #8. Acute heart failure with reduced EF, present on admission, active, improving -ECHO reveals an EF of 30% -Now down by 20 L -Cardiology consulted, will follow recommendations -IV heparin and Nitroglycerin drip stopped. -ASA, statin, Lasix, beta-skyler per cardiology. -Consider restarting ACEi prior to discharge. Will defer to cardiology. -2 L fluid restriction, low sodium diet, CHF education -Consider transition to by mouth diuretics for the next couple of days. Acute kidney injury secondary to prerenal azotemia, not present on admission, resolved -Restart ACEi/ARB per cardiology -Continue to monitor Elevated troponin secondary to CHF exacerbation, present on admission, active -As above, although troponin level remained stable without a peak more suggestive of chronic stress -Regardless, patient declines invasive treatment options, requesting medical management only. Mildly depressed fracture of the lateral tibial plateau, present on admission, ongoing. -Pain management currently achieved with when necessary Percocet -Orthopedic surgery contacted. Appreciate time and expertise. -Orthopedic recommendations include physical therapy, crutches/walker, outpatient follow-up with a 2 view x-ray, vitamin D/calcium supplementation, outpatient DEXA scan. Hyperlipidemia: - Statin therapy as noted above Hyperglycemia -A1C normal Hypertension -As above CODE STATUS: DO NOT RESUSCITATE/DO NOT INTUBATE Disposition: Anticipate patient can be discharged tomorrow to a SNF to regain mobility with her fracture and for daily physical therapy. GI Prophylaxis: Not indicated VTE Prophylaxis: Sub-Q Heparin (Unfractionated) Resuscitation Status: DNR/DNI:Do Not Resuscitate/Intubate Time spent 35 minutes Attending Statement I interviewed and examined the patient on rounds today. I agree with the assessment and plan as stated above. Tamanna Mai DO February 19, 2017 13:58 Kobi Stark MD February 19, 2017 14:35
--- NOTE | 2017-02-19 18:20 | NUR ---
Diuresis Pt continues diuresis today, LE edema trace, red/purple discoloration unchanged from black border. Pt's BP 90s-100s/50s, denies dizziness, on 2L fluid restrictions with only ~450mL intake this shift.
--- NOTE | 2017-02-19 21:00 | NUR ---
BP/ Shyan[facility], 2030 med held per RX and re-timed for am d/t low BP
[2017-02-20] VITALS (10 sets, daily range): BP systolic 100–151; BP diastolic 59–86; PULSE 75–89; RESP 16–20; O2SAT 93–97
[2017-02-20] MEDS: Heparin 5,000 Unit/mL Inj SUBQ SCH ×3 (00:23→17:12)
[2017-02-20] MEDS: Calcium Carbonate (Oyster Shell) 500 mg Tablet PO SCH (08:32)
[2017-02-20] MEDS: Furosemide 10 mg/mL 4 mL Inj IVPUSH SCH (08:32)
[2017-02-20] MEDS: oxyCODONE-Acetamin 5-325 mg Tablet PO PRN ×3 (08:33→19:45)
--- NOTE | 2017-02-20 10:52 | PCM.PNCARD ---
Subjective Date of service February 20, 2017 Chief Complaint Progressive shortness of breath History of Present Illness 71yoF with no past medical hx who had avoided healthcare for 7 years presents with progressive shortness of breath for 2-3 weeks prior to admission. She initially complained of shortness of breath on exertion, orthopnea, and PND with bilateral lower extremity edema. She has complained of mild chest discomfort, described as a band-like tightness around her chest for the past 2- 3 weeks. EKG showed LVH pattern with ST changes. Troponins were elevated on admission. CXR showed bilateral pleural effusions and pulmonary edema. Echo showed EF of 30-35% with global LV hypokinesis. She has been diuresed with Lasix and spironolactone. Subjective: Pt reports her shortness of breath has resolved and she has been having more energy. She is still apprehensive about becoming orthopneic and has not tried to lay flat. She has agreed to try lying flat today. She denies chest pain, palpitations, worsening edema, syncope. PROBLEM LIST: #Acute systolic CHF exacerbation (EF 30% on echo 02/12/17) #NSTEMI #Hypertension #Hyperlipidemia Exam Vital Signs Vital Sign - Last Date Time Temp Pulse Resp B/P Pulse Ox O2 Delivery O2 Flow Rate FiO2 02/20/17 10:39 85 02/20/17 08:24 36.7 16 136/78 94 Room Air 02/18/17 07:40 2.00 Intake and Output 02/19/17 02/19/17 02/20/17 Cumulative From/Thru 15:00 23:00 07:00 02/12/17 11:45 - 02/20/17 06:27 Intake Total 420 ml 536 ml 8644 ml Output Total 1200 ml 1000 ml 19859 ml Balance -780 ml -464 ml -65418 ml Intake Oral 420 ml 536 ml 7462 ml IV Total 1182 ml Output Urine Total 1200 ml 1000 ml 28457 ml # Bowel Movements 0 Additional Information: General appearance: No apparent distress, thin-appearing, pleasant, cooperative HEET: Normocephalic, atraumatic, no scleral icterus, mucous membranes moist Neck: No JVD. Carotid murmur heard bilaterally. Cardiovascular: RRR, normal S1 and normal S2, systolic 4/6 murmur heard at left sternal border, diastolic 2/6 murmur heard at right sternal border, PMI nondisplaced, bilateral minimal lower extremity edema, significantly improved from admission. Pulses normal in all extremities. Respiratory: Mild crackles at bilateral bases Abdomen: Soft, nontender, nondistended, + bowel sounds Neuro: Alert, no facial droop, tongue midline Psych: Appropriate affect Skin: No rashes on face, neck, and lower extremities Lab and Diagnostics Result Diagram: 02/18/17 0324 02/20/17 0835 Assessment & Plan Assessment #Acute systolic congestive heart failure: Pt presented with signs and symptoms of acute volume overload. Likely new onset CHF secondary to severe hypertension. CXR showed pleural effusions and pulmonary edema. Pt has not had prior workup or treatment as she avoided physicians for 7 years. She does not appear to be in decompensated heart failure at this time, so milrinone was discontinued. Her volume status continues to improve along with her symptoms. Her fluid status is steadily improving, and she is approaching euvolemia. Will obtain CXR to assess fluid status and convert Lasix to PO. - Carvedilol 3.125 mg BID increased to 6.25 BID - Switched furosemide 40 mg IV daily to 20 mg PO daily. May increase to 40 mg PO based on CXR results. - Continue losartan 50 mg BID - Continue spironolactone 25 mg PO daily - CXR ordered - BNP ordered - BMP and Mg daily - Stopped milrinone - Stopped chlorothiazide gtt - Discontinued hydralazine #Hypertension: Her hypertension is fairly controlled, and SBP now remains mostly in 120s - 130s, but increased to 151/86 this morning. - Losartan 50 mg BID - Carvedilol 3.125 mg BID increased to 6.25 BID - Continue spironolactone - Discontinue hydralazine #Acute kidney injury: Fairly stable, but BUN/Cr are beginning to slowly trend up again. Will convert Lasix to PO and continue to monitor - Losartan 50 mg BID - Converted Lasix to 20 Mg PO daily - Stopped chlorothiazide gtt - Continue to monitor BMP #NSTEMI: EKG showed ST changes, but these may be due to LVH. Revisited the topic of heart catheterization but pt is hesitant to undergo any invasive procedures at this time, and wishes to have improvement in her orthopnea before discussing it further. - Nitroglycerin SL PRN - Continue ASA 81 mg PO daily - Discontinued Plavix #Frailty: Pt appears quite thin and reports severe weakness and inability to stand since being hospitalized, as well as her right tibial fracture. Recommend continuing physical therapy. - Continue PT Problems: (1) Acute systolic heart failure Status: Acute ICD Code: I50.21 (2) Non-ST elevation myocardial infarction (NSTEMI) Status: Acute ICD Code: I21.4 Pain Evaluation: Adequate Pain Control GI Prophylaxis: Not indicated VTE Prophylaxis: Sub-Q Heparin (Unfractionated) Resuscitation Status: DNR/DNI:Do Not Resuscitate/Intubate Attending Statement I saw, examined, and evaluated the patient with Dr. Dav ePrdue on 2016 and agree with the note as above along with my edits. Dav Perdue February 20, 2017 10:52 Ger Nicole MD February 20, 2017 11:29
--- NOTE | 2017-02-20 12:34 | DRSVH ---
PROCEDURE: X-RAY CHEST, TWO VIEWS ([id number]) INDICATIONS: dyspnea, heart failure TECHNIQUE: 2 views of the chest were acquired. COMPARISON: [facility], CR, XR CHEST 2VW, 02/18/2017, 12:32. FINDINGS: Surgical changes and devices: None. Lungs and pleura: No pneumothorax. No change in small right pleural effusion. No change in moderate bibasilar airspace opacities and mild basilar predominant interstitial pulmonary opacity. Mediastinum: Mediastinal contours are normal. Heart size is enlarged. Bones and chest wall: No suspicious bony abnormalities. Soft tissues appear unremarkable. IMPRESSION: 1. No change in bibasilar pneumonia. Follow up plain films of the chest are recommended to ensure res olution, and to exclude underlying or central malignancy. 2. No change in mild CHF. Dictated by: Kevin Monae M.D. on 02/20/2017 at 12:31 Approved by: Kevin Monae M.D. on 02/20/2017 at 12:32
--- NOTE | 2017-02-20 13:05 | PCM.PNMED ---
Subjective Date of Service February 20, 2017 Subjective Zenobia Marcos is a 71 year old woman who has a history of avoiding health care who presented to the [facility] ED with a complaint of shortness of breath for the last 2-3 weeks. Now under treatment for acute heart failure with reduced EF. Hospital day #9. The patient shows limited physical activity but was able to mobilize better with physical therapy. Her breathing is improved. She endorses postural dizziness. Exam Vital Signs Vital Sign - Last Date Time Temp Pulse Resp B/P Pulse Ox O2 Delivery O2 Flow Rate FiO2 02/20/17 11:45 36.5 83 20 107/62 96 Room Air 02/18/17 07:40 2.00 Intake and Output 02/19/17 02/19/17 02/20/17 Cumulative From/Thru 15:00 23:00 07:00 02/12/17 11:45 - 02/20/17 06:27 Intake Total 420 ml 536 ml 8644 ml Output Total 1200 ml 1000 ml 65646 ml Balance -780 ml -464 ml -61885 ml Intake Oral 420 ml 536 ml 7462 ml IV Total 1182 ml Output Urine Total 1200 ml 1000 ml 59019 ml # Bowel Movements 0 Exam General: Frail-appearing but no acute distress HEENT: sclerae anicteric, oral mucosa moist Neck: no JVD Chest: Trace basilar crackles but generally clear to auscultation Cardiac: S1S2, II/ systolic murmur Abdomen: BS normal, non-tender Extremities: 1-2+ edema; dark-colored stasis dermatitis changes Neuro: A&O, cranial nerves symmetric, motor strength 3-4/5, coordination normal IVs and Medications Medications Reviewed: Medications were reviewed in detail Lab and Diagnostics Result Diagram: 02/18/17 0324 02/20/17 0835 X-Rays, CTs and MRIs PROCEDURE: X-RAY CHEST, TWO VIEWS ([id number]) IMPRESSION: 1. No change in bibasilar pneumonia. Follow up plain films of the chest are recommended to ensure resolution, and to exclude underlying or central malignancy. 2. No change in mild CHF. Dictated by: Kevin Monae M.D. on 02/20/2017 at 12:31 X-RAY CHEST ONE VIEW, PORTABLE IMPRESSION: Bibasilar opacities obscure the diaphragms, most likely representing small to moderate sized bilateral pleural effusions with associated atelectasis. However, superimposed pneumonia or pulmonary edema cannot be excluded. Dictated by: King Corey M.D. on 02/12/2017 at 11:28 US VEINOUS LEG DUPLEX UNILATERAL, RIGHT IMPRESSION: No gross evidence of deep venous thrombosis. However, exam is considered suboptimal as patient could not tolerate compression. Dictated by: Karie Wiley M.D. on 02/13/2017 at 16:46 US DUPLEX DOPPLER UNILATERAL LEG ARTERIES, RIGHT IMPRESSION: No hemodynamic significant stenosis in the right lower extremity arteries. Dictated by: Pepe Escalante M.D. on 02/15/2017 at 10:00 CT KNEE RIGHT W/O CONTRAST IMPRESSION: Mildly depressed fracture involving the posterior margin of the lateral tibial plateau (Schatzker IIIA) Dictated by: Chante Pagan MD, PhD on 02/14/2017 at 19:32 Cardiac Echo Impressions Interpretation Summary The left ventricle is moderate-severely dilated. There is moderate concentric left ventricular hypertrophy. Left ventricular systolic function is moderate to severely reduced. The ejection fraction is estimated to be 30-35%. There is moderate to severe global hypokinesis of the left ventricle. The right ventricle is normal in size and function. The right ventricular systolic pressure is estimated at 63 mmHg assuming a right atrial pressure of 15 mm Hg. The left atrium is severely dilated. The right atrium is mild to moderately dilated. There is moderate mitral regurgitation. There is mild aortic valve sclerosis. There is moderate aortic regurgitation. There is mild to moderate tricuspid regurgitation. The aortic Sinus(es) of Valsalva are moderately dilated. The ascending aorta is moderately enlarged. There is a small pericardial effusion noted. There are no echocardiographic or Doppler indications for cardiac tamponade. There are moderately large-sized bilateral pleural effusions noted. Assessment & Plan Zenobia Marcos is a 71 year old woman who has a history of avoiding health care who presented to the [facility] ED with a complaint of shortness of breath for the last 2-3 weeks. Now under treatment for acute heart failure with reduced EF. Hospital day #8. Acute heart failure with reduced EF, present on admission, active, improving. ECHO reveals an EF of 30%. Diuresed by 20 L. chest x-ray shows residual bilateral effusion. -Cardiology consulted, will follow recommendations -ASA, statin, Lasix, beta-skyler, losartan, spironolactone per cardiology. -Consider restarting ACEi prior to discharge. Will defer to cardiology. -2 L fluid restriction, low sodium diet, CHF education - Adjusting oral medications with expectation of discharge home soon. Acute kidney injury secondary to prerenal azotemia, not present on admission, resolved. Peak serum creatinine 1.36. Baseline 0.95; currently 1.08. -Restart ARB per cardiology -Continue to monitor Elevated troponin secondary to CHF exacerbation, present on admission, active -As above, although troponin level remained stable without a peak more suggestive of chronic stress -Regardless, patient declines invasive treatment options, requesting medical management only. Mildly depressed fracture of the lateral tibial plateau, present on admission, ongoing. - Physical therapy with encouragement for patient to mobilize -Pain management currently achieved with when necessary Percocet -Orthopedic surgery contacted. Appreciate time and expertise. -Orthopedic recommendations include physical therapy, crutches/walker, outpatient follow-up with a 2 view x-ray, vitamin D/calcium supplementation, outpatient DEXA scan. Muscle deconditioning, acute on chronic. - Physical therapy - We will require discharge to SNF Hyperlipidemia: - Statin therapy as noted above Hyperglycemia -A1C normal Hypertension -As above CODE STATUS: DO NOT RESUSCITATE/DO NOT INTUBATE Disposition: Anticipate patient can be discharged tomorrow to a SNF to regain mobility with her fracture and for daily physical therapy. GI Prophylaxis: Not indicated VTE Prophylaxis: Sub-Q Heparin (Unfractionated) Resuscitation Status: DNR/DNI:Do Not Resuscitate/Intubate Time spent 35 minutes Kobi Stark MD February 20, 2017 13:05
--- NOTE | 2017-02-20 15:30 | NUR ---
Social Work: Readiness for Discharge D: EMR reviewed. Pt is on day 8 of hospitalization for CHF, ASF per H&P. Pt is not medically ready for discharge, anticipate discharge tomorrow. [facility] has accepted pt with [facility] to follow. NAYANA met with pt at bedside regarding discharge plan, pt agreeable to [facility]. NAYANA spoke with Vianney, admissions at [facility], who is agreeable to accepting pt tomorrow. NAYANA updated Bere, admissions at [facility], regarding pt's discharge plan. Pt to discharge to [facility] with [facility] to follow when medically stable. SW will continue to follow. PPW on chart PASSR completed A: Pt who will require SNF as pt is not ambulating due to tibula fracture. P: Pt to discharge to [facility] with [facility] to follow. Paperwork on chart. PASRR complete and in folder. All updated and agreeable to plan. SW will continue to follow. Viki Camacho MSW
--- NOTE | 2017-02-20 18:28 | NUR ---
Reported pain/breathing changes Pt reported deep/intermittent/achey pain, indicating ribs under left axilla. Pt denied pain with movement of left arm/deep breathing, day care attendant made aware, no further orders at this time. Pt given PRN percocet which Pt reported as reducing the intermittent pain. Pt reported that she thought she was hyperventilating or hypoventilating, Pt's RR ~16 at this time. Pt denied SOB, SPO2 sat 955 on RA. 2L O2 via nasal cannula placed on Pt for comfort which Pt reported as effective.
[2017-02-21 02:51] VITALS: BP 133/72; PULSE 84; RESP 17; O2SAT 93
[2017-02-21 04:47] VITALS: PULSE 80
--- NOTE | 2017-02-21 06:01 | NUR ---
NOC: Uneventful evening. Vitals stable. PRN PO pain med given for right hip and back discomfort with good relief- pt sleeping throughout night. tele Sr- sp02 maintained on RA. Care ongoing.
[2017-02-21 07:37] VITALS: BP 127/83; PULSE 70; RESP 20; O2SAT 97
[2017-02-21] MEDS: Calcium Carbonate (Oyster Shell) 500 mg Tablet PO SCH (07:41)
[2017-02-21] MEDS: Heparin 5,000 Unit/mL Inj SUBQ SCH ×2 (07:42)
--- NOTE | 2017-02-21 09:25 | PCM.PNCARD ---
Subjective Date of service February 21, 2017 Chief Complaint Progressive shortness of breath History of Present Illness 71yoF with no past medical hx who had avoided healthcare for 7 years presents with progressive shortness of breath for 2-3 weeks prior to admission. She initially complained of shortness of breath on exertion, orthopnea, and PND with bilateral lower extremity edema. She has complained of mild chest discomfort, described as a band-like tightness around her chest for the past 2- 3 weeks. EKG showed LVH pattern with ST changes. Troponins were elevated on admission. CXR showed bilateral pleural effusions and pulmonary edema. Echo showed EF of 30-35% with global LV hypokinesis. She has been diuresed with Lasix and spironolactone. Subjective: Overnight, pt had mild sharp left rib pain on deep inspiration which resolved with Percocet. She states it may have been musculoskeletal pain after doing PT. Pt has no complaints today. She denies dyspnea on exertion, paroxysmal nocturnal dyspnea, chest pain, palpitations, worsening edema, or syncope. She has not yet tried to lay flat due to concerns about orthopnea but has been urged to try today. PROBLEM LIST: #Acute systolic CHF exacerbation (EF 30% on echo 02/12/17) #NSTEMI #Hypertension #Hyperlipidemia Exam Vital Signs Vital Sign - Last Date Time Temp Pulse Resp B/P Pulse Ox O2 Delivery O2 Flow Rate FiO2 02/21/17 07:37 36.8 70 20 127/83 97 Room Air 02/20/17 19:37 1.00 Intake and Output 02/20/17 02/20/17 02/21/17 Cumulative From/Thru 15:00 23:00 07:00 02/12/17 11:45 - 02/21/17 06:10 Intake Total 1340 ml 318 ml 56048 ml Output Total 1450 ml 1200 ml 28972 ml Balance -110 ml -882 ml -82265 ml Intake Oral 1340 ml 318 ml 9120 ml IV Total 1182 ml Output Urine Total 1450 ml 1200 ml 12902 ml # Bowel Movements 0 Additional Information: General appearance: No apparent distress, thin-appearing, pleasant, cooperative HEET: Normocephalic, atraumatic, no scleral icterus, mucous membranes moist Neck: No JVD. Carotid murmur heard bilaterally. Cardiovascular: RRR, normal S1 and normal S2, systolic 4/6 murmur heard at left sternal border, diastolic 2/6 murmur heard at right sternal border, PMI nondisplaced, bilateral minimal lower extremity edema, significantly improved from admission. Pulses normal in all extremities. Respiratory: Clear to auscultation bilaterally, no crackles, wheezes, rhonchi Abdomen: Soft, nontender, nondistended, + bowel sounds Neuro: Alert, no facial droop, tongue midline Psych: Appropriate affect Skin: No rashes on face, neck, and lower extremities Lab and Diagnostics Result Diagram: 02/18/17 0324 02/20/17 0835 X-Rays, CTs and MRIs CXR 02/20/17 10:11 1. No change in bibasilar pneumonia. Follow up plain films of the chest are recommended to ensure resolution, and to exclude underlying or central malignancy. 2. No change in mild CHF. Assessment & Plan Assessment #Acute systolic congestive heart failure: Pt presented with signs and symptoms of acute volume overload. Likely new onset CHF secondary to severe hypertension. CXR showed pleural effusions and pulmonary edema. Pt has not had prior workup or treatment as she avoided physicians for 7 years. She does not appear to be in decompensated heart failure at this time, so milrinone was discontinued. Her volume status continues to improve along with her symptoms. Her fluid status is steadily improving, and she is approaching euvolemia. Repeat CXR 02/20 showed no major change in pulmonary edema. - Continue carvedilol 6.25 BID - Continue furosemide 20 mg PO daily. Furosemide 40mg daily caused an GINA. - Continue losartan 50 mg BID - Continue spironolactone 25 mg PO daily. Decrease dose if K >=5.5. - BMP and Mg daily - Stopped milrinone - S/p chlorothiazide gtt 02/22 - Discontinued hydralazine #Hypertension: Her hypertension is fairly controlled, and SBP now remains mostly in 120s - 130s. - Continue losartan 50 mg BID - Continue carvedilol 6.25 BID - Discontinue hydralazine #Acute kidney injury: Fairly stable, BUN/Cr slowly trending up post diuretic tx. Discontinued IV diuretics and will continue low dose PO diuretics. - Continue losartan 50 mg BID - Continue Lasix 20 Mg PO daily - S/p chlorothiazide gtt 02/22 - Continue to monitor BMP #NSTEMI: EKG showed ST changes, but these may be due to LVH. Revisited the topic of heart catheterization but pt is hesitant to undergo any invasive procedures at this time, and wishes to have improvement in her orthopnea before discussing it further. - Continue nitroglycerin SL PRN - Continue ASA 81 mg PO daily - Discontinued Plavix #Frailty: Pt appears quite thin and reports severe weakness and inability to stand since being hospitalized, as well as her right tibial fracture. Recommend continuing physical therapy. - Continue PT Disposition: Pt is clinically improved and near euvolemic. Appropriate for discharge today with close follow up with Cardiology outpatient in 2 weeks. BMP in 5 days to review K, BUN, and Cr. If K >=5.5, decrease spironolactone dose. Problems: (1) Acute systolic heart failure Status: Acute ICD Code: I50.21 (2) Non-ST elevation myocardial infarction (NSTEMI) Status: Acute ICD Code: I21.4 Pain Evaluation: Adequate Pain Control GI Prophylaxis: Not indicated VTE Prophylaxis: Sub-Q Heparin (Unfractionated) Resuscitation Status: DNR/DNI:Do Not Resuscitate/Intubate Attending Statement I saw, examined, and evaluated the patient with Dr. Dav Perdue on 2016 and agree with the note as above along with my edits. Dav Perdue February 21, 2017 09:25 Ger Nicole MD February 21, 2017 11:09
[2017-02-21 11:34] VITALS: PULSE 89
[2017-02-21] MEDS ORDERED: ASPI81TA3 PO (12:11)
[2017-02-21] MEDS ORDERED: FUR20 PO (12:11)
[2017-02-21] MEDS ORDERED: SPIR25TA PO (12:11)
[2017-02-21] MEDS ORDERED: ATOR40TA69 PO (12:11)
[2017-02-21] MEDS ORDERED: CARV6.252 PO (12:11)
[2017-02-21] MEDS ORDERED: LOSA50TA3 PO (12:11)
[2017-02-21] MEDS ORDERED: Calcium Carbonate PO (12:11)
--- NOTE | 2017-02-21 12:21 | PCM.DIMED ---
Discharge Instructions Date of Service February 21, 2017 Dates of Hospitalization February 12, 2017 at 15:05 Discharge Diagnosis Discharge Diagnosis Acute systolic congestive heart failure; Anxiety; Acute kidney injury; Protein calorie malnutrition; Physical deconditioning; Right tibial plateau fracture; Osteoporosis . Test Results Test Results Discharge weight 57.1 kg Oxygen saturation 97% on room air Diet Discharge Diet: Heart Healthy (low-sodium diet) Activity Discharge Activity: Other (as per physical therapy recommendations at [facility]) Call your provider Call your provider for: Other (increased leg swelling) Patient Instructions Patient Instructions Maintain low-sodium diet and check weight daily. Episodes of chest pain and shortness of breath has been carefully evaluated and judged not to be due to cardiac or respiratory causes. The patient feels better with oxygen but does not require it based on normal oxygen saturation and respiratory rate. These symptoms may be worsened by anxiety. Follow-up plan #1 daily weights and low-sodium diet at [facility] #2 physical therapy efforts to reverse deconditioning at [facility] #3 recommend to check BMP blood test during the week of 02/22 to assess renal function #4 follow-up in cardiology clinic within 1-2 weeks #5 follow-up with primary care provider when [facility] from [facility]. Follow-up Provider: Tulio Borrero DO Follow-up with PCP in: [address] ([address] [facility]) Provider: Ad Loyola MD Follow-up in: Other (after discharge from detention facility) Mid-level Provider (F9[facility] Follow-up with Mid-level in: 1 week (for mid-level provider (please obtain BMP at [facility] prior to this appointment); subsequent appointment with engine installer.) Kobi Stark MD February 21, 2017 12:21
[2017-02-21] MEDS ORDERED: TRAM50TA2 PO (12:29)
--- NOTE | 2017-02-21 12:29 | PCM.DC.MED ---
Discharge Summary Date of Service February 21, 2017 Dates of Hospitalization Date of Hospital Admission February 12, 2017 at 15:05 Date of Discharge: February 21, 2017 Providers: Admitting Physician: Momo Garcia DO Primary Care Physician: Marysol Attending Physician: Momo Garcia DO Diagnosis at Time of Discharge Diagnosis at Time of Discharge Acute systolic congestive heart failure; Anxiety; Acute kidney injury; Protein calorie malnutrition; Physical deconditioning; Right tibial plateau fracture; Osteoporosis . Consultations Cardiology: Dr. Carlo Flores, Dr. Renato [facility], Dr. Farhat Gallardo "Right tibial plateau fracture diagnosed at time of admit. Patient is followed by Dr. Farhat Gallardo from orthopedics. Patient is not a surgical candidate secondary to her other medical comorbidities conditions. Continue nonweightbearing at the right lower extremity using a walker with physical therapy. Continue formal physical and occupational therapy for mobility, safety in gait. Continue by mouth pain control as needed for fracture Follow-up with orthopedics 1 week post discharge with right two-view knee x- rays on arrival. Recommend vitamin D/Ca supplementation. Recommend DEXA as outpatient to assess osteoporosis given low impact injury. From orthopedic standpoint patient is cleared to discharge when ready per hospitalist service. Orthopedics will follow an office post discharge. Anticipate discharge to retirement facility by hospitalist service when patient is medically stable to do so." . Procedures XRay, CTs & MRIs PROCEDURE: X-RAY CHEST, TWO VIEWS ([id number]) IMPRESSION: 1. No change in bibasilar pneumonia. Follow up plain films of the chest are recommended to ensure resolution, and to exclude underlying or central malignancy. 2. No change in mild CHF. Dictated by: Kevin Monae M.D. on 02/20/2017 at 12:31 X-RAY CHEST ONE VIEW, PORTABLE IMPRESSION: Bibasilar opacities obscure the diaphragms, most likely representing small to moderate sized bilateral pleural effusions with associated atelectasis. However, superimposed pneumonia or pulmonary edema cannot be excluded. Dictated by: King Corey M.D. on 02/12/2017 at 11:28 US VEINOUS LEG DUPLEX UNILATERAL, RIGHT IMPRESSION: No gross evidence of deep venous thrombosis. However, exam is considered suboptimal as patient could not tolerate compression. Dictated by: Karie Wiley M.D. on 02/13/2017 at 16:46 US DUPLEX DOPPLER UNILATERAL LEG ARTERIES, RIGHT IMPRESSION: No hemodynamic significant stenosis in the right lower extremity arteries. Dictated by: Pepe Escalante M.D. on 02/15/2017 at 10:00 CT KNEE RIGHT W/O CONTRAST IMPRESSION: Mildly depressed fracture involving the posterior margin of the lateral tibial plateau (Schatzker IIIA) Dictated by: Chante Pagan MD, PhD on 02/14/2017 at 19:32 Cardiac Echo Impression Interpretation Summary The left ventricle is moderate-severely dilated. There is moderate concentric left ventricular hypertrophy. Left ventricular systolic function is moderate to severely reduced. The ejection fraction is estimated to be 30-35%. There is moderate to severe global hypokinesis of the left ventricle. The right ventricle is normal in size and function. The right ventricular systolic pressure is estimated at 63 mmHg assuming a right atrial pressure of 15 mm Hg. The left atrium is severely dilated. The right atrium is mild to moderately dilated. There is moderate mitral regurgitation. There is mild aortic valve sclerosis. There is moderate aortic regurgitation. There is mild to moderate tricuspid regurgitation. The aortic Sinus(es) of Valsalva are moderately dilated. The ascending aorta is moderately enlarged. There is a small pericardial effusion noted. There are no echocardiographic or Doppler indications for cardiac tamponade. There are moderately large-sized bilateral pleural effusions noted. Brief History History of Present Illness (per admission note): 71yoF with no past medical hx who had avoided healthcare for 7 years presents with progressive shortness of breath for 2-3 weeks prior to admission. She initially complained of shortness of breath on exertion, orthopnea, and PND with bilateral lower extremity edema. She has complained of mild chest discomfort, described as a band-like tightness around her chest for the past 2- 3 weeks. EKG showed LVH pattern with ST changes. Troponins were elevated on admission. CXR showed bilateral pleural effusions and pulmonary edema. Echo showed EF of 30-35% with global LV hypokinesis. She has been diuresed with Lasix and spironolactone. Hospital Course #1 Acute heart failure with reduced EF, present on admission, active. She was on no prior cardiac medications for this hospitalization. ECHO reveals an EF of 30%. Diuresed by 20 L over 8 days. Follow-up Chest x-ray shows residual bilateral effusion. Oxygenation has been excellent on room air and respiratory rate is normal, despite her complaints of dyspnea. - ASA, statin, Lasix, beta-skyler, losartan, spironolactone per cardiology. - 2 L fluid restriction, low sodium diet, CHF education - Daily weights #2 Acute kidney injury secondary to prerenal azotemia, not present on admission , resolved. Baseline serum creatinine was 0.95. Peak serum creatinine with aggressive diuresis was 1.36. Currently 1.29 prior to discharge. - This may be a mild creatinine response to ARB therapy; does not seem to be overdiuresis on her current regimen. - BMP should be followed but serum creatinines in the radiology <1.4 may be acceptable in the setting of severe CHF - Recommend BMP check within 1 week, prior to cardiology follow-up #3 Chest pain, Elevated troponin, acute. No acute EKG changes. Troponin elevation seems to be secondary to CHF exacerbation. Her chest pain complaint appears to be noncardiac. - Regardless, patient declines invasive treatment options, requesting medical management only. - Recommend symptomatic care with emphasis on noncardiac chest pain. #4 Anxiety and cognitive impairment, chronic. She appeared to express chest pain and dyspnea somatization, with poor insight into health issues, which was worsened when she was concerned about her limited self-care abilities. She frequently expressed chest pain and dyspnea complaints that appeared to have no physiologic basis. She is a poor candidate for benzodiazepine or opioid medication also. - Recommend supportive care, preferably nonpharmacologic approaches #5 Mildly depressed fracture of the lateral tibial plateau, present on admission , ongoing. Likely related to osteoporosis - Physical therapy with encouragement for patient to mobilize - Minimize opioid pain medications -Orthopedic recommendations include physical therapy, crutches/walker, outpatient follow-up with a 2 view x-ray, vitamin D/calcium supplementation, outpatient DEXA scan. #6 Muscle deconditioning, severe, acute on chronic. - Physical therapy - We will require discharge to SNF - Encourage nutritional support Other problems: Hyperlipidemia: - Statin therapy as noted above Hyperglycemia -A1C normal Hypertension -As above . Exam Vital Signs (Last) Date Time Temp Pulse Resp B/P Pulse Ox O2 Delivery O2 Flow Rate FiO2 02/21/17 11:34 89 02/21/17 07:37 36.8 20 127/83 97 Room Air 02/20/17 19:37 1.00 Exam General: Frail-appearing elderly woman in no acute distress HEENT: sclerae anicteric, oral mucosa moist Neck: no JVD Chest: clear to auscultation Cardiac: S1S2, no murmur 2/ systolic murmur Abdomen: BS normal, non-tender Extremities: 1+ edema with marked erythematous stasis dermatitis, but no signs of infection Neuro: Alert with mild cognitive impairment, cranial nerves symmetric, motor strength 3-4/5, coordination grossly normal Test 02/12/17 12:25 02/12/17 16:23 02/12/17 21:30 02/13/17 02:44 Total Bilirubin 0.5mg/dL (0.0-1.2) Aspartate Amino Transf (AST/SGOT) 39U/L (0-50) Alanine Aminotransferase (ALT/SGPT) 37U/L (0-32) Alkaline Phosphatase 99U/L (25-165) Total Protein 5.4g/dL (6.4-8.4) Albumin 3.1g/dL (3.4-5.0) Hold Ferrell Top Tube Received (Received) Hemoglobin A1c 5.4% (4.8-5.6) Troponin T 0.054ug/L (0.0-0.011) Triglycerides Level 84mg/dL (0-149) Cholesterol Level 217mg/dL (100-199) LDL Cholesterol, Calculated 144.200mg/dL (0-99) VLDL Cholesterol 16.800mg/dL HDL Cholesterol 56mg/dL (>39) Cholesterol/HDL Ratio 3.88 (0.0-4.4) Test 02/14/17 04:05 02/14/17 10:20 02/18/17 03:24 02/20/17 10:00 Uric Acid 7.8mg/dL (2.6-7.2) Magnesium Level 1.8mg/dL (1.6-2.6) Activated Partial Thromboplast Time 54.2sec (22.8-33.0) White Blood Count 6.1th/mm3 (3.8-10.1) Red Blood Count 3.29mil/mm3 (3.90-5.20) Hemoglobin 9.7g/dL (12.0-15.6) Hematocrit 29.5% (35.0-46.0) Mean Corpuscular Volume 89.7fL (81-100) Mean Corpuscular Hemoglobin 29.5pg (27.0-35.0) Mean Corpuscular Hemoglobin Concent 32.9% (32.0-37.0) Red Cell Distribution Width 14.9% (12.3-15.4) Platelet Count 227bil/L (150-400) Neutrophils (%) (Auto) 74.7% (40-74) Lymphocytes (%) (Auto) 10.6% (14-46) Monocytes (%) (Auto) 11.1% (4-12) Eosinophils (%) (Auto) 3.1% (0-5) Basophils (%) (Auto) 0.3% (0-3) Pro-B-Type Natriuretic Peptide 2667pg/mL (0-301) Test 02/21/17 09:19 Sodium Level 136mEq/L (134-144) Potassium Level 5.0mEq/L (3.5-5.2) Chloride Level 99mEq/L (97-108) Carbon Dioxide Level 25mmol/L (18-29) Blood Urea Nitrogen 35mg/dL (8-27) Creatinine 1.29mg/dL (0.57-1.00) Estimat Glomerular Filtration Rate 59mL/min (>59) Glucose Level 129mg/dL (60-99) Calcium Level 8.6mg/dL (8.5-10.1) Discharge Medications Discharge Medications ([Calcium Carbonate]) 500 MG TABLET 1,000 MG PO DAILY Prescribed by: HAYLEE FERRER MD Aspirin Chew (Aspirin Chew) 81 Mg Chew 81 MG PO DAILY Prescribed by: HAYLEE FERRER MD Atorvastatin Calcium (Atorvastatin Calcium) 40 Mg Tablet 40 MG PO HS Prescribed by: HAYLEE FERRER MD Carvedilol (Carvedilol) 6.25 Mg Tablet 6.25 MG PO BIDWM Prescribed by: HAYLEE FERRER MD Furosemide (Furosemide) 20 Mg Tab 20 MG PO DAILY Prescribed by: HAYLEE FERRER MD Losartan Potassium (Cozaar) 50 Mg Tablet 50 MG PO BID Prescribed by: HAYLEE FERRER MD Spironolactone (Aldactone) 25 Mg Tablet 25 MG PO DAILY Prescribed by: HAYLEE FERRER MD Followup Plan Follow-up plan #1 daily weights and low-sodium diet at [facility] #2 physical therapy efforts to reverse deconditioning at [facility] #3 recommend to check BMP blood test during the week of 02/22 to assess renal function #4 follow-up in cardiology clinic within 1-2 weeks #5 follow-up with primary care provider when discharged from retirement facility. Discharge Diet: Heart Healthy (low-sodium diet) Discharge Activity: Other (as per physical therapy recommendations at [facility]) Patient Instructions Maintain low-sodium diet and check weight daily. Episodes of chest pain and shortness of breath has been carefully evaluated and judged not to be due to cardiac or respiratory causes. The patient feels better with oxygen but does not require it based on normal oxygen saturation and respiratory rate. These symptoms may be worsened by anxiety. Follow-up Provider: Tulio Borrero DO Follow-up with PCP in: 1 week (at [facility]) Provider: Ad Loyola MD Follow-up in: Other (after discharge from retirement facility) [facility] Follow-up with Mid-level in: 1 week (for mid-level provider (please obtain BMP at [facility] prior to this appointment); subsequent appointment with flooring machine feeder.) Time spent 40 minutes copies to: Ad Loyola MD; Tulio Borrero DO; Ger Nicole MD; Farhat Gallardo MD, Jeffrey W MD February 21, 2017 12:29
--- NOTE | 2017-02-21 13:49 | NUR ---
Social Work: Discharge D: EMR reviewed. Pt is on day 9 of hospitalization for CHF, ASF per H&P. Pt medically ready for discharge, discharge orders are active. [facility] Estefania Cook has accepted pt with [facility] to follow. SW created packet and faxed orders. Bernie, admissions at [facility], is agreeable to accepting pt today. Vianney coordinated transport via wheelchair van for 1430. Pt did not identify any family for SW to contact. UC, RN, pt, and [facility] are all updated and agreeable to plan. A: Pt who will require SNF as pt is not ambulating due to tibula fracture. P: Pt to discharge to [facility] with [facility] to follow, transport via wheelchair van at 1430. UC, RN, pt, and [facility] are all updated and agreeable to plan. YASSINE Solorio
[2017-02-21] MEDS: oxyCODONE-Acetamin 5-325 mg Tablet PO PRN (14:13)
[2017-02-21 15:30] VITALS: BP 111/67; PULSE 83; RESP 16; O2SAT 96
--- NOTE | 2017-02-21 16:32 | NUR ---
Discharge Pt discharged to [facility] of [facility] today at ~1515. Report was called to Katheryn, receiving RN at [facility]. Pt's IV access D/C'd and intact. Pt verbalizing pain with movement of right leg continues, Pt given PRN percocet prior to transport to [facility]. All Pt's belongings accompanied Pt at time of discharge.
== END 2017-02-21 15:33 | DRG 281 ==
LOC: EDBD 11:27 → SED 11:27 → PCC 15:05
PROVIDERS: ADMIT Family Medicine; ATTEND Family Medicine
DX: I50.21 Acute systolic (congestive) heart failure (principal); I21.4 Non-ST elevation (NSTEMI) myocardial infarction; S82.141A Displaced bicondylar fracture of right tibia, initial encounter for closed fracture; N17.9 Acute kidney failure, unspecified; E46 Unspecified protein-calorie malnutrition; I11.0 Hypertensive heart disease with heart failure; I25.10 Atherosclerotic heart disease of native coronary artery without angina pectoris; E78.5 Hyperlipidemia, unspecified; R73.9 Hyperglycemia, unspecified; I25.2 Old myocardial infarction; Z68.20 Body mass index [BMI] 20.0-20.9, adult; Z66 Do not resuscitate; W18.39XA Other fall on same level, initial encounter; Z91.81 History of falling